=== PATIENT | male | born 1945 | race Caucasian/White ===

== ENCOUNTER 2018-05-08 22:18 | Observation (INO) | payer MEDICARE, BC ==
[~2018-05-08] VITALS: Ht 180.3 cm; Wt 87.3 kg
[~2018-05-08 22:18] MED LIST: AMBIEN5 MG PO; ASPIRIN EC81 M1 PO; ELIQUIS2.5 MG PO; HYDROCODONE-APA1 TAB PO; MICARDIS80 MG PO; NIASPAN500 MG PO; NORVASC10 MG PO; PLAVIX75 MG PO; PRAVACHOL80 MG PO; PREVACID15 MG PO; PREVACID30 MG PO; SONATA10 MG PO; VITAMIN D31000 UNIT PO
[2018-05-08] MEDS ORDERED: ZYLOPRIM100 MG PO (22:25)
[2018-05-08] MEDS ORDERED: DIOVAN160 MG PO (22:25)
[2018-05-08] MEDS ORDERED: GABAPENTIN100 MG PO (22:25)
[2018-05-08 22:38] LABS: BASOPHILS 0.4 % (0-2); EOSINOPHILS 5.8 % (0-7); HEMOGLOBIN 12.2 g/dL (13.5-17.5); IMMATURE GRANULOCYTES 0.1 % (0-5); LYMPHOCYTES 24.2 % (15-50); MCH 31.8 pg (26.0-34.0); MCV 96.4 fL (80.0-100.0); MEAN PLATELET VOLUME 9.3 fL (7.4-10.4); MONOCYTES 6.6 % (2-11); NEUTROPHILS 62.9 % (40-80); RBC 3.84 10x6/uL (4.20-6.10); RDW 13.7 % (11.5-14.5)
[2018-05-08 22:45] LABS: PLATELET COUNT 247 10x3/uL (130-400)
[2018-05-08 22:47] LABS: APTT 24.9 SECONDS (22.8-39.4); INR 0.91 (0.85-1.17); PROTIME 11.8 SECONDS (11.6-15.0)
[2018-05-08 22:55] LABS: ALBUMIN 4.1 g/dL (3.4-5.0); ALKALINE PHOSPHATASE 94 U/L (46-116); ALT (SGPT) 25 U/L (10-68); BILIRUBIN - TOTAL 0.22 mg/dL (0.2-1.3); CALC OSMOLALITY 277 mosm/kg (275-300); CALCIUM 8.9 mg/dL (8.5-10.1); CARBON DIOXIDE 24.8 mmol/L (21.0-32.0); CHLORIDE - SERUM 105 mmol/L (98-107); CREATININE - SERUM 2.2 mg/dL (0.6-1.3); GLUCOSE 103 mg/dL (74-106); POTASSIUM - SERUM 5.1 mmol/L (3.5-5.1); PROTEIN - SERUM 7.9 g/dL (6.4-8.2); SODIUM 137 mmol/L (136-145); UREA NITROGEN 25 mg/dL (7-18); eGFR NON AFRICAN AMERICAN 31 mL/min (90-120)
[2018-05-08 23:07] LABS: CKMB 1.3 U/L (0.0-3.6); CREATINE KINASE 150 UL (21-232); PRO BNP 122 pg/mL (0-125); TROPONIN-I < 0.017 ng/mL (0.000-0.060)
[2018-05-09 00:58] VITALS: BP 108/61; BMI 26.8
[2018-05-09 04:00] VITALS: BP 98/55
[2018-05-09 07:59] VITALS: BP 136/70
[2018-05-09 08:11] VITALS: Ht 180.3 cm; Wt 87.3 kg
[2018-05-09 11:06] VITALS: BP 144/73
[2018-05-09 15:06] VITALS: BP 135/76
[2018-06-23] MEDS ORDERED: CO Q-10100 MG PO (08:39)
== END 2018-05-09 16:47 | disposition home or self-care (01) ==
LOC: D.ER 22:18 → D.EDHOLD 23:13 → OBSVTIME 23:13 → D.M2 23:36
PROVIDERS: Family Medicine
DX: R07.9 Chest pain, unspecified (principal); I10 Essential (primary) hypertension; N28.9 Disorder of kidney and ureter, unspecified; K21.9 Gastro-esophageal reflux disease without esophagitis; G62.9 Polyneuropathy, unspecified; Z86.73 Personal history of transient ischemic attack (TIA), and cerebral infarction without residual deficits; Z87.891 Personal history of nicotine dependence

== ENCOUNTER 2018-06-02 09:50 | Outpatient (CLI) | payer MEDICARE, BC ==
[~2018-06-02] VITALS: Ht 180.3 cm; Wt 90.9 kg
--- NOTE | ~2018-06-02 | HEMODYNAMI ---
PATIENT:SUSANNA JOHNSON MEDICAL RECORD: [id number] : 41 LOCATION:[facility] ADMISSION DATE: 06/02/18 Generatedon:06/02/201814:16 Patient name: SUSANNA JOHNSON Patient #: [id number] SSN: : 1945 Date of study: 06/02/2018 Page: Of Hemodynamic Procedure Report Patient Data Patient Demographics Procedure consent was obtained First Name: SUSANNA Gender: Male Last Name: ALEX : 1945 Patient #: [id number] Age: 72 year(s) Race: Unknown Additional ID: [id number] Contact details Address: [facility] [address] State: [place] City: [facility] Zip code: [address] Past Medical History Allergies Allergen Reaction Date Comments Reported Other allergy 06/02/2018 sulfa Admission Admission Data Admission Date: 06/02/2018 Admission Time: 9:50 Admit Source: Other Lab Results Lab Result Date: 06/02/2018 Lab Result Time: 11:02 Biochemistry Name Units Result Min Max BUN mg/dl 28 --(----)-* 7 18 Creatinine mg/dl 2 --(----)-* 0.6 1.3 CBC Name Units Result Min Max Hematocrit % 33.3 *-(----)-- 42 54 Hemoglobin g/dl 11 *-(----)-- 13.5 17.5 Procedure Procedure Types Cath Procedure Diagnostic Procedure LHC LHC w/Coronaries Sedation Charges Moderate Sedation up to 15 minutes Procedure Description Procedure Date Procedure Date: 06/02/2018 Procedure Start Time: 13:58 Procedure End Time: 14:15 Procedure Staff Name Function Joe Kim MD Performing Physician Cecilio Jensen RT Monitor Konstantin Crockett RN Nurse Procedure Data Cath Procedure Fluoroscopy Diagnostic fluoroscopy Total fluoroscopy Time: 2.3 time: 2.3 min min Diagnostic fluoroscopy Total fluoroscopy dose: dose: 167.96 mGy 167.96 mGy Contrast Material Contrast Material Type Amount (ml) Isovue 300 65 Entry Location Entry Primary Successful Side Size Upsize Upsize Entry Closure Dunn ccessful Closure Location (Fr) 1 (Fr) 2 (Fr) Remarks Device Remarks Radial Right 6 Fr Mechanical artery Short Compression Estimated blood loss: 5 ml Diagnostic catheters Device Type Used For End Catheter Placement DIAGNOSTIC Antwon 110cm Procedure 5Fr catheter ([id number]) Procedure Complications No complications Procedure Medications Medication Administration Route Dosage 0.9% NaCl I.V. 100 ml/hr Oxygen etCO2 Nasal cannula 2 l/min Heparin Flush Bag added to field 2 bags (1000units/500ml NS) Lidocaine 2% added to field 20 Radial Cocktail added to field 1 syringe (Verapomil 2mg/Nitro 400mcg/Heparin 1500units) Versed I.V. 1 mg Fentanyl I.V. 50 mcg Versed I.V. 1 mg Fentanyl I.V. 50 mcg Radial Cocktail I.A. 1 syringe (Verapomil 2mg/Nitro 400mcg/Heparin 1500units) Hemodynamics Rest HGB: 11 (g/dl) Heart Rate: 66 (bpm) Pressure Samples Time Site Value (mmHg) Purpose Heart Use Rate(bpm) 14:02 LV 109/8,16 Snapshot 74 14:03 AO 86/51(68) Pullback 45 14:03 LV 111/-9,13 Pullback 45 Gradients Valve Time Site 1 Site 2 Mean SEP/DFP Peak To Heart Use (mmHg) (sec/min) Peak Rate (mmHg) (bpm) Aortic 14:03 LV AO 17 6 25 45 111/-9,13 86/51(68) Calculations Valve P-P Mean Valve Index Valve Source Name Gradient Area Flow (cm2) Aortic 25 17 25 17 Snapshots Pre Cath Intra NCS Post Cath Vital Signs Time Heart Resp SPO2 etCO2 NIBP (mmHg) Rhythm Pain Sedation Rate (ipm) (%) (mmHg) Status Level (bpm) 13:42:11 63 35 96 0 121/71(104) NSR 0 (11) 10(A) , No pain 13:46:25 51 19 95 25.5 134/81(101) NSR 0 (11) 10(A) , No pain 13:50:41 58 14 93 0 124/75(95) NSR 0 (11) 10(A) , No pain 13:54:55 70 19 93 44.2 120/74(98) NSR 0 (11) 10(A) , No pain 13:59:11 67 13 95 37.5 125/71(105) NSR 0 (11) 10(A) , No pain 14:03:31 73 18 93 36 101/53(73) NSR 0 (11) 10(A) , No pain 14:07:41 72 19 92 38.9 115/66(85) NSR 0 (11) 10(A) , No pain 14:11:55 70 14 96 23.9 113/63(88) NSR 0 (11) 10(A) , No pain Medications Time Medication Route Dose Verified Delivered Reason Notes Effectiveness by by 13:39:28 0.9% NaCl I.V. 100 Konstantin Konstantin Per ml/hr Bon Crockett physician RN RN 13:40:16 Oxygen etCO2 2 l/min Konstantin Konstantin Per Nasal Bon Crockett physician cannula RN RN 13:40:29 Heparin Flush added 2 bags Konstantin Konstantin used for Bag to Bon Crockett procedure (1000units/500ml RN RN NS) 13:40:41 Lidocaine 2% added 20ml Konstantin Konstantin for local to vial Lorigan Lorigan anesthetic RN RN 13:40:54 Radial Cocktail added 1 Konstantin Konstantin used for (Verapomil to syringe Bon Crockett procedure 2mg/Nitro field BENJAMIN RN 400mcg/Heparin 1500units) 13:52:17 Versed I.V. 1 mg Konstantin Konstantin for sedation Bon Crockett RN RN 13:52:25 Fentanyl I.V. 50 mcg Konstantin Konstantin for sedation Bon Crockett RN RN 13:58:54 Versed I.V. 1 mg Konstantin Konstantin for sedation Bon Crockett RN RN 13:59:01 Fentanyl I.V. 50 mcg Konstantin Konstantin for sedation Bon Crockett RN RN 14:00:53 Radial Cocktail I.A. 1 Konstantin Joe for (Verapomil syringe Bon pérez 2mg/Nitro RN 400mcg/Heparin 1500units) Procedure Log Time Note 13:17:40 Informed consent obtained and on chart 13:17:44 Admit Source: Other 13:18:27 Johan Stahl RT(R) Scrub 13:18:29 Diagnostic Cath status Elective 13:18:46 Time tracking: Regular hours (M-F 7:00 - 5:00) 13:18:49 Plan of Care:Hemodynamics will remain stable., Cardiac rhythm will remain stable., Comfort level will be maintained., Respiratory function will remain adequate., Patient/ family verbilizes understanding of procedure., Procedure tolerated without complication., Recovers from procedure without complications.. 13:24:39 H&P Date Dictated: 05/20/2018 Within 30 days and on chart., H&P Addendum completed by physician on day of procedure. (MUST COMPLETE FOR ALL OUTPATIENTS). 13:26:16 Konstantin Crockett RN sent for patient. Start room use. 13:31:53 Patient received from Pre/Post Procedure Room to CCL 3 Alert and oriented. Tansferred to table in Supine position. 13:31:54 Warm blankets applied, and jeanna hugger turned on for patient comfort. 13:31:54 Correct patient and procedure confirmed by team. 13:31:55 ECG and BP/O2 sat monitors applied to patient. 13:31:55 Pre-procedure instructions explained to patient. 13:31:56 Pre-op teaching completed and patient verbalized understanding. 13:31:57 Family in waiting room. 13:31:58 Patient NPO since Midnight. 13:39:28 0.9% NaCl 100 ml/hr I.V. was administered by Konstantin Crockett RN; Per physician; 13:40:16 Oxygen 2 l/min etCO2 Nasal cannula was administered by Konstantin Crockett RN; Per physician; 13:40:29 Heparin Flush Bag (1000units/500ml NS) 2 bags added to field was administered by Konstantin Crockett RN; used for procedure; 13:40:41 Lidocaine 2% 20ml vial added to field was administered by Konstantin Crockett RN; for local anesthetic; 13:40:54 Radial Cocktail (Verapomil 2mg/Nitro 400mcg/Heparin 1500units) 1 syringe added to field was administered by Konstantin Crockett RN; used for procedure; 13:41:01 Vital chart was started 13:49:17 Baseline sample Acquired. 13:49:22 Rhythm: sinus rhythm 13:49:23 Full Disclosure recording started 13:49:35 Patient allergic to Other allergysulfa 13:49:37 Is the patient allergic to Iodine/contrast media? No. 13:49:38 Is patient on blood thinner?Yes 13:49:41 ACC The patient was administered the following blood thiners within the last 24 hours: ACCPlavix 13:49:42 Patient diabetic? No. 13:49:47 Previous problem with sedation/anesthesia? No ? 13:49:50 Snore? Yes 13:49:51 Sleep apnea? No 13:49:52 Deviated septum? No 13:49:52 Opens mouth fully? Yes 13:49:53 Sticks out tongue? Yes 13:49:55 Airway obstruction? No ? 13:49:58 Dentures? Yes in tight 13:50:02 Modified John's test Ulnar < 7 seconds 13:50:03 Patient pain scale 0/10 ?. 13:50:29 IV patent on arrival in left forearm with 0.9% NaCl at [facility]. 13:50:55 Lab Result : BUN 28 mg/dl 13:50:55 Lab Result : Hemoglobin 11 g/dl 13:50:55 Lab Result : Creatinine 2 mg/dl 13:50:55 Lab Result : Hematocrit 33.3 % 13:50:56 Lab results completed and on chart. 13:50:59 Right Radial & Right Groin area was prepped with chlora-prep and draped in sterile fashion 13:51:00 Alarms reviewed by R. N. 13:51:00 Sharps counted by scrub and verified by R.N. 13:51:04 Use device set Radial Dx or PCI 13:51:05 ACIST Syringe (61509) opened to sterile field. 13:51:07 Medline Cath Pack ([id number]) opened to sterile field. 13:51:07 Bag Decanter (2002) opened to sterile field. 13:51:08 ACIST Hand Control (41929) opened to sterile field. 13:51:08 ACIST Manifold (60350) opened to sterile field. 13:51:09 Tegaderm 4 x 4 (1626W) opened to sterile field. 13:51:10 MBrace Wrist Support ([id number]) opened to sterile field. 13:51:12 DIAGNOSTIC WIRE .035 260cm J wire (959523) opened to sterile field. 13:51:12 NEEDLE Cook 21G 4cm Radial (S36549) opened to sterile field. 13:51:15 SHEATH 6Fr Prelude Radial ([id number]) opened to sterile field. 13:51:21 Physician arrived 13:: --------ALL STOP TIME OUT------ 13:51:22 Final Timeout: patient, procedure, and site verified with staff and physician. All members of the team are in agreement. 13:51:23 Right Radial & Right Groin site verified by team. 13:51:26 Physical assessment completed. ASA score P 2 - A patient with mild systemic disease as per Joe Kim MD. 13:51:28 Sedation plan: IV Moderate Sedation Medication:Versed, Fentanyl 13:52:17 Versed 1 mg I.V. was administered by Konstantin Crockett RN; for sedation; 13:52:25 Fentanyl 50 mcg I.V. was administered by Konstantin Crockett RN; for sedation; 13:54:16 Zero performed for pressure channel P1 13:54:19 Zero performed for pressure channel P1 13:54:27 Zero performed for pressure channel P1 13:58:25 Procedure started. 13:58:33 Local anesthetic to right radial artery with Lidocaine 2% by Joe Kim MD.INITIAL ACCESS ONLY 13:58:54 Versed 1 mg I.V. was administered by Konstantin Crockett RN; for sedation; 13:59:01 Fentanyl 50 mcg I.V. was administered by Konstantin Crockett RN; for sedation; 14:00:05 A 6 Fr Short sheath was inserted into the Right Radial artery 14:00:38 A DIAGNOSTIC Antwon 110cm 5Fr catheter ([id number]) was advanced over the wire and used for Procedure. 14:00:53 Radial Cocktail (Verapomil 2mg/Nitro 400mcg/Heparin 1500units) 1 syringe I.A. was administered by Joe Kim MD; for vasodilation; 14:02:24 LV hemodynamics recorded. 14:02:51 LV gram done using ALEJANDRE 14:02:57 Injector settings: Ml/sec: 5, Volume: 15, 14:03:21 EF : 60 % 14:03:58 LCA angiography performed. 14:06:15 RCA angiography performed. 14:08:56 Catheter removed. 14:09:12 TR BAND Standard ([id number]) opened to sterile field. 14:10:25 Sheath removed intact; hemostasis achieved with Mechanical Compression to the Right Radial artery. 14:10:26 Procedure ended.(Physican Out) 14:11: Fluoroscopy time 02.30 minutes. 14::34 Fluoroscopy dose: 167.96 mGy 14:11:34 Flurop Dose total: 167.96 14:11:55 Contrast amount:Isovue 300 65ml. 14:11:57 Sharps counted by scrub and verified by R.N. 14:12:02 TR band inflated with 12cc of air. 14:12:03 Insertion/operative site no bleeding no hematoma. 14:12:11 Post right radial artery:stable, soft, clean and dry 14:12:31 Post Procedure Pulses reassessed and unchanged 14:12:35 Post-procedure physical assessment completed. ASA score P 2 - A patient with mild systemic disease as per Joe Kim MD. 14:12:47 Post procedure rhythm: unchanged. 14:12:51 Estimated blood loss: 5 ml 14:12:53 Post procedure instruction explained to patient.Patient verbalizes understanding. 14:12:54 Patient needs reinforcement of post procedure teaching. 14:15:00 Procedure type changed to Cath procedure, Diagnostic procedure, LHC, LHC w/Coronaries, Sedation Charges, Moderate Sedation up to 15 minutes 14:15:17 Procedure and supply charges have been captured, reviewed, submitted and are correct. 14:15:20 Procedure Complication : No complications 14:15:23 Vital chart was stopped 14:15:24 See physician's report for complete and final results. 14:15:25 Report given to Pre/Post Procedure Room. 14:15:27 Patient transfered to Pre/Post Procedure Room with Stretcher. 14:15:29 Procedure ended. 14:15:29 Full Disclosure recording stopped 14:15:34 End room use (Document Last) Device Usage Item Name Manufacture Quantity Catalog Number Hospital Part Current M inimal Lot# / Charge Number Stock Stock Serial# Code ACIST Syringe Acist 1 94020 578484 [id number] 535313 2 0 (32896) [employer]! [employer] Medline Cath Cardinal 1 [id number] 780227 65719 002853 5 Magic Le[employer] Health ([id number]) Bag Decanter Microtek 1 281242 99666 591457 5 () Medical Inc. ACIST Hand Acist 1 42100 195601 249166 192832 5 Control (87104) Medical Systems Inc ACIST Manifold Acist 1 22614 003143 630624 907180 5 (18091) Medical Systems Inc Tegaderm 4 x 4 3M 1 1626W 227808 927242 848411 5 (1626W) MBrace Wrist Advanced 1 140-0250-00 563550 60122 602792 5 Support Vascular ([id number]) Dynamics DIAGNOSTIC WIRE St Leonel 1 104183 187961 567816 287811 3 0 .035 260cm J wire (204457) NEEDLE Cook 21G Cook Medical 1 T08826 670592 527825 682903 5 4cm Radial (W80928) SHEATH 6Fr Merit 1 [id number] 566937 150564 862808 5 Prelude Radial Medical ([id number]) DIAGNOSTIC Terumo 1 49-3384 598791 417334 337568 5 Antwon 110cm 5Fr catheter (432449) TR BAND Terumo 1 [id number] 820450 509258 850749 4 0 Standard (LVS12BVD) Signature Audit Ruthven Stage Time Signature Unsigned Intra-Procedure 06/02/2018 Cecilio Jensen 2:15:59 PM RT(R) Signatures Monitor : Cecilio Jensen RT Signature : Date : Time : [place] [place] [address]
[~2018-06-02 09:50] MED LIST changes: +DIOVAN160 MG PO; +GABAPENTIN100 MG PO; +ZYLOPRIM100 MG PO
[2018-06-02] MEDS ORDERED: AVAPRO150 MG PO (10:31)
[2018-06-02 10:52] VITALS: BP 132/69; Ht 180.3 cm; Wt 90.9 kg
[2018-06-02 11:07] LABS: BASOPHILS 0.4 % (0-2); EOSINOPHILS 6.6 % (0-7); HEMATOCRIT 33.3 % (42.0-54.0); LYMPHOCYTES 20.9 % (15-50); MCH 31.5 pg (26.0-34.0); MCV 95.4 fL (80.0-100.0); MEAN PLATELET VOLUME 9.5 fL (7.4-10.4); MONOCYTES 6.4 % (2-11); NEUTROPHILS 65.7 % (40-80); PLATELET COUNT 229 10x3/uL (130-400); RBC 3.49 10x6/uL (4.20-6.10); RDW 13.3 % (11.5-14.5); WBC 5.5 10x3/uL (4.8-10.8)
[2018-06-02 11:42] LABS: ANION GAP 15.2 mmol/L (8-16); CALCIUM 8.8 mg/dL (8.5-10.1); CARBON DIOXIDE 22.5 mmol/L (21.0-32.0); POTASSIUM - SERUM 5.7 mmol/L (3.5-5.1)
[2018-06-23] MEDS ORDERED: CO Q-10100 MG PO (08:39)
== END 2018-06-02 16:46 | disposition home or self-care (01) ==
LOC: D.CATH 09:50
PROVIDERS: Internal Medicine Cardiovascular Disease
DX: I25.119 Atherosclerotic heart disease of native coronary artery with unspecified angina pectoris (principal); Z01.812 Encounter for preprocedural laboratory examination

== ENCOUNTER → 2018-06-16 15:14 | Outpatient (CLI) | payer MEDICARE, BC ==
[2018-06-02 10:52] VITALS: BMI 27.9
[~2018-06-16 15:14] MED LIST changes: +AVAPRO150 MG PO; +CO Q-10100 MG PO; +CORDARONE200 MG PO; +HEMOCYTE PLUS C1 CAP PO; +HYDROCODON-ACE1 EAC7 PO
[2018-06-18 08:22] LABS: HEP B CORE AB TOTAL Negative (Negative); HEPATITIS C ANTIBODY 0.1 (0.0-0.9)
== END | disposition home or self-care (01) ==
LOC: D.LAB 15:00 → D.US 15:30
PROVIDERS: Internal Medicine Cardiovascular Disease
DX: Z01.812 Encounter for preprocedural laboratory examination (principal); R09.89 Other specified symptoms and signs involving the circulatory and respiratory systems

== ENCOUNTER 2018-06-18 10:39 | Outpatient (CLI) | payer MEDICARE, BC ==
[~2018-06-18] VITALS: Ht 180.3 cm; Wt 90.9 kg
[~2018-06-18 10:39] MED LIST changes: -CO Q-10100 MG PO; -CORDARONE200 MG PO; -HEMOCYTE PLUS C1 CAP PO; -HYDROCODON-ACE1 EAC7 PO
[2018-06-18 12:44] VITALS: Ht 180.3 cm; Wt 90.9 kg
[2018-06-23] MEDS ORDERED: CO Q-10100 MG PO (08:39)
== END 2018-06-18 20:10 | disposition home or self-care (01) ==
LOC: D.OPS 10:39 → D.CT 15:00 → D.OPS 20:10
DX: R94.39 Abnormal result of other cardiovascular function study (principal); Z01.812 Encounter for preprocedural laboratory examination; Z01.810 Encounter for preprocedural cardiovascular examination

== ENCOUNTER 2018-06-24 05:00 | Inpatient (IN) | payer MEDICARE, BC ==
[2018-06-23 10:02] LABS: BASOPHILS 0.9 % (0-2); HEMATOCRIT 34.7 % (42.0-54.0); HEMOGLOBIN 11.8 g/dL (13.5-17.5); IMMATURE GRANULOCYTES 0.2 % (0-5); LYMPHOCYTES 22.2 % (15-50); MEAN PLATELET VOLUME 9.4 fL (7.4-10.4); MONOCYTES 6.7 % (2-11); PLATELET COUNT 242 10x3/uL (130-400); RBC 3.69 10x6/uL (4.20-6.10); RDW 13.1 % (11.5-14.5); WBC 5.5 10x3/uL (4.8-10.8)
[2018-06-23 10:26] LABS: ALBUMIN 3.9 g/dL (3.4-5.0); ANION GAP 11.4 mmol/L (8-16); BILIRUBIN - TOTAL 0.21 mg/dL (0.2-1.3); CALCIUM 8.6 mg/dL (8.5-10.1); CARBON DIOXIDE 24.5 mmol/L (21.0-32.0); CREATININE - SERUM 2.3 mg/dL (0.6-1.3); PHOSPHOROUS 3.6 mg/dL (2.5-4.9); POTASSIUM - SERUM 4.9 mmol/L (3.5-5.1); PROTEIN - SERUM 7.3 g/dL (6.4-8.2); T4 THYROXIN - FREE 0.83 ng/dL (0.76-1.46); THYROID STIMULATING HORMONE 2.07 uIU/mL (0.36-3.74); URIC ACID 4.8 mg/dL (2.6-7.2)
[2018-06-23 10:45] LABS: APTT 27.8 SECONDS (22.8-39.4); INR 0.93 (0.85-1.17)
[2018-06-23 11:12] LABS: APPEARANCE CLEAR (CLEAR); BILIRUBIN NEGATIVE (NEGATIVE); COLOR YELLOW (YELLOW); GLUCOSE NEGATIVE (NEGATIVE); KETONE NEGATIVE (NEGATIVE); NITRITE NEGATIVE (NEGATIVE); PROTEIN NEGATIVE (NEGATIVE); SPECIFIC GRAVITY 1.005 (1.005-1.020); UROBILINOGEN NORMAL (NORMAL)
[2018-06-24] VITALS (40 sets, daily range): BP systolic 91–135; BP diastolic 41–84; BMI 26.8; BMI 29.2
[~2018-06-24] VITALS: Ht 180.3 cm; Wt 54.8 kg
--- NOTE | ~2018-06-24 | OP ---
PATIENT NAME: SUSANNA JOHNSON MEDICAL RECORD: [id number] :41 LOCATION:D.I D.CV05 ADMISSION DATE:06/24/18 SURGEON: CHRISTIANO BOYCE MD DATE OF OPERATION: 06/24/2018 SURGEON: Christiano Boyce MD ANESTHESIA: General endotracheal, Dr. Cavazos. CONGRESSIONAL DISTRICT AIDE: Dr. Tucker. OPERATION PERFORMED: Coronary artery bypass: 1. Left internal thoracic to left anterior descending. 2. Reverse saphenous vein graft to the first diagonal coronary artery. 3. Reverse saphenous vein graft to the obtuse marginal coronary artery. 4. Reverse saphenous vein graft to the distal right coronary artery. PREOPERATIVE DIAGNOSIS: Atherosclerosis of the coronary arteries with angina. POSTOPERATIVE DIAGNOSIS: Atherosclerosis of the coronary arteries with angina. INDICATION FOR OPERATION: Angina pectoris. FINDINGS AT OPERATION: The left internal thoracic and reverse saphenous vein graft from right thigh were excellent conduits. The target vessels were of good caliber and quality as well. ESTIMATED BLOOD LOSS: Cell Saver was used. DESCRIPTION OF PROCEDURE: After informed consent, adequate preoperative medication evaluation, the patient was brought to the operating room, placed on the table in the supine position. After induction of general endotracheal anesthesia and application of appropriate monitoring devices, the chest, neck, abdomen, and both legs were prepped and draped in sterile field, utilizing Betadine scrub, alcohol, and Betadine solution. Betadine-impregnated drape was also used. Saphenous vein was harvested from right thigh and prepared for reverse saphenous vein grafting. Leg was closed over drains utilizing 3-0 Vicryl and skin perfecto. Median sternotomy incision was used and dissection carried down to the fascia. Hemostasis maintained with electrocautery. Sternum was divided. Innominate vein was identified and protected. Left internal thoracic was taken down and prepared for grafting. The patient was given a calculated dose of heparin, cannulated in a standard fashion utilizing 1 aortic, one two-stage cannula in the atrium and inferior vena cava. The patient was placed on cardiopulmonary bypass. The patient was cooled to 32 degrees centigrade. A cross clamp was placed just proximal to the aortic cannula and the patient was given cardioplegic solution through the aortic root. The patient was given a warm induction and cold maintenance. The patient was given cold intermittent cardioplegic solution throughout the procedure through the grafts, through the root or a combination of both. The first vessel to be grafted was the distal right coronary artery, which was grafted end-to-side utilizing running 7-0 Prolene suture. Graft was measured back to the aorta and the proximal anastomosis fashioned utilizing running 6-0 Prolene suture. Next, the obtuse marginal was grafted end-to-side utilizing a running 7-0 Prolene suture. This was measured back to the aorta superiorly and sutured end-to-side utilizing running 6-0 Prolene suture. Next, first diagonal was grafted OPERATIVE REPORT [id number] SUSANNA JOHNSON end-to-side utilizing a running 7-0 Prolene suture. This graft was brought back to the aorta and placed inferiorly to the obtuse marginal graft end-to-side utilizing a running 7-0 Prolene suture. The left internal thoracic was brought through the hole in pericardium, sutured to the left anterior descending end-to-side utilizing a running 8-0 Prolene suture. All maneuvers to remove trapped air were performed. The patient was given warm cardioplegic reperfusion and controlled reperfusion. The patient was rewarmed to 37 degrees centigrade. Two atrial and 2 ventricular pacing wires were placed on the heart brought out through the epigastric area. The patient was weaned from cardiopulmonary bypass. After being stable off bypass, he was given calculated dose of protamine to reverse the heparin. Hemostasis was achieved. A #40 right angle and #36 chest tubes were brought in through the epigastric area and placed in mediastinum. A separate left Thomas drain was placed in the left hemithorax connected to bulb suction. Chest was again irrigated. Instrument count and sponge count were correct times 2. Chest was closed in layers utilizing #7 wire on the sternum, #2 Vicryl in linea alba and pectoralis fascia, subcutaneous tissues approximated with 3-0 Vicryl and skin approximated with 3-0 subcuticular Vicryl. Sterile dressings were applied. The patient tolerated the procedure well and transferred to cardiovascular recovery in stable condition. TRANSINT:[id number] Voice Confirmation ID: [id number] DOCUMENT ID: [id number] CHRISTIANO BOYCE MD at 1233 CC: [id number] DICTATION DATE: 06/24/18 1413 THERAPEUTIC ACTIVITIES SERVICES WORKER: 06/24/18 1424 ADM IN [place] [id number] [place] [address]
--- NOTE | ~2018-06-24 | TEE ---
PATIENT:SUSANNA JOHNSON MEDICAL RECORD: [id number] LOCATION:[place] [address] AGE OF PATIENT: 72 ADMISSION DATE: 06/24/18 SEX: M REFERRING PHYSICIAN: INTERPRETING PHYSICIAN: NEHAL SOLORIO MD TRANSESOPHAGEAL ECHOCARDIOGRAM Date: 06/24/18 LINSEY CHARGE Y INDICATIONS: CABG PREMEDICATIONS: PATIENT'S RESPONSE PROCEDURE DOPPLER MEASUREMENTS: LVIT LA PA RA LVOT RVOT Asc. Ao AV Gradient Peak AV Mean AV Area MV Gradient Peak MV Mean MV Area INTERPRETATION: LVD: 4.3 LVS: 3.0 Doppler: 2-D: COLOR FLOW DOPPLER NORMAL SALINE STUDY: MISCELLANOUS: DIAGNOSIS: PLAN: Green Chain Off Bearer:Landon Kim Inspector Heating And Refrigeration: Marina NEAL COMMENTS: DATE OF SERVICE: 06/24/2018 PROCEDURE: Transesophageal echo evaluation of valvular structures during bypass surgery. FINDINGS: 1. Left ventricular chamber size is within normal limits. Left ventricular systolic function is normal. Overall ejection fraction estimated at 55% to 60%. 2. Left atrium, right atrium, and right ventricle chamber sizes are within TRANSESOPHAGEAL ECHOCARDIOGRAM REPORT [id number] SUSANNA JOHNSON normal limits. 3. Valvular structures have normal structure and motion. 4. Doppler interrogation only reveals trace to mild mitral regurgitation, no other valvular insufficiency or stenosis. 5. No evidence of pericardial effusion or left ventricular thrombus. TRANSINT:[id number] Voice Confirmation ID: [id number] DOCUMENT ID: [id number] at 1728 CC: [id number] DICTATION DATE: 06/24/18 1014 PRACTICAL NURSE: 06/24/18 1116 ADM IN [place] [id number] [place] [address]
--- NOTE | ~2018-06-24 | EC ---
PATIENT:SUSANNA JOHNSON DATE OF SERVICE: 06/24/18 SEX: M MEDICAL RECORD: [id number] DATE OF : 41 LOCATION:[place] [address] AGE OF PATIENT: 72 ADMISSION DATE: 06/24/18 REFERRING PHYSICIAN: INTERPRETING PHYSICIAN: NEHAL LYONS MD ECHOCARDIOGRAM REPORT ECHO CHARGES 5 ECHO LIMITED Date: 06/26/18 1 DOPPLER ECHO COLOR FLOW 2 DOPPLER ECHO PULSE CLINICAL DIAGNOSIS: S/P CABG ECHOCARDIOGRAPHIC MEASUREMENTS (adult normal given) AC root (d.<3.7cm) 0 cm LV Septum d (<1.2 cm> 0 cm Valve Excursion 0 cm LV Septum (systole) 0 cm Left Atria (s.<4.0cm> 0 cm LVPW d(<1.2cm) 0 cm RV (d.<2.3cm) 0 cm LVPW (sytole) 0 cm LV diastole(<5.6CM) 0 cm MV E-F(>70mm/sec) 0 cm LV systole 0 cm LVOT Diameter 0 cm MV exc.(>10mm) 0 cm Est.ejection fraction (50-75%) % DOPPLER: LVIT 0 cm/sec A 0 cm/sec E 0 cm/sec LA 0 cm/sec RVSP 32.0 mmHg LVOT 0 cm/sec AOP1/2T 0 m/s Asc. Ao 0 cm/sec RVOT 0 cm/sec RA 0 cm/sec PA 0 cm/sec AV Gradient Peak 0 mmHg AV Mean 0 mmHg AV Area 0 cm MV Gradient Peak 0 mmHg MV Mean 0 mmHg MV Area 0 cm COMMENTS: LIMITED ECHO WITH BUBBLE STUDY Sales Vendor: 1 JIMMY LUMBERTON Product Marketing Engineer: 1 Dr. Lyons TAPE# PACS Pericardial Effusion N DATE OF SERVICE: FINDINGS: 1. Left ventricular chamber size is upper limits of normal. Left ventricular systolic function is mildly reduced. Overall ejection fraction estimated at 40%. 2. Left atrium, right atrium, and right ventricular chamber sizes are upper limits of normal. 3. Valvular structures have normal structure and motion. 4. Doppler interrogation reveals mild mitral regurgitation, mild tricuspid ECHOCARDIOGRAM REPORT [id number] SUSANNA JOHNSON regurgitation. No other valvular insufficiency or stenosis. Pulmonary systolic pressure is estimated at 32 mmHg. 5. No evidence of pericardial effusion or left ventricular thrombus. 6. Bubble study was done. There is no evidence of alms-pa-jmfhx or twhkn-kp-dlha shunt. TRANSINT:[id number] Voice Confirmation ID: [id number] DOCUMENT ID: [id number] NEHAL LYONS MD at 0934 CC: [id number] DICTATION DATE: 06/27/18 0958 VETERINARY ASSISTANT TECHNICIAN: 06/27/18 1118 ADM IN [place] [id number] [place] [address]
--- NOTE | ~2018-06-24 | HP ---
PATIENT: SUSANNA JOHNSON MEDICAL RECORD: [id number] ACCOUNT: [id number] LOCATION:[facility]05 : 43 ADMISSION DATE: 06/24/18 PCP: ETTA BOYCE MD HISTORY AND PHYSICAL EXAMINATION SUSANNA Wright (72yo, M) ID# [id number]. Date/Time06/16/2018 02:[id number] 1945Service Dept.NPP[facility] ClinicProviderEDLOIS BOYEC MDInsuranceMed Primary: [place] Insurance # : [id number] Employer Name : RETIRED Med Secondary: [place]LE[place]) Insurance # : [id number] Policy/Group # : [id number] PCP : IAN THOMPSON Referring Provider Name : IAN THOMPSON Employer Name : RETIRED Prescription: CMX - Member is eligible. Chief Complaint None recorded. Patient's Care Team Primary Care Provider (): IAN THOMPSON: [address] [place] [address], , Referring Provider (): IAN THOMPSON: [address] [place] [address], , [id number] ([facility]): [address] [place] [facility] [address], , Vitals BP:130/70 sitting R arm 06/16/2018 02:11 pm 120/60 sitting L arm 06/16/2018 02:11 pmHR:88R/R 06/16/2018 02:11 pmHt:5 ft 10 in 06/16/2018 02:11 pmWt:200 lbs 06/16/2018 02:09 pmBMI:28.7 06/16/2018 02:11 pmAllergies Reviewed Allergies SULFA (SULFONAMIDE ANTIBIOTICS): Other (Severe)Medications Reviewed Medications ACETYLCYSTEINE 600 MG Capsules TAKE ONE CAPSULE BY MOUTH TWICE DAILY FOR 2 DAYS05/29/18 filledsurescriptsAfluria 1183-9289 45 mcg (15 mcg x 3)/0.5 mL intramuscular suspension ADM 0.5ML UTD11/30/12 filledsurescriptsallopurinol 100 mg tablet TK 1 T PO BID06/01/18 filledCaremarkamLODIPine 10 mg tablet TK 1 T PO DAILY03/19/18 filledCaremarkamoxicillin 875 mg-potassium clavulanate 125 mg zgojzc68/19/11 filledMEDCOazithromycin 250 mg kmkhru89/30/16 filledsurescriptscefUROXime axetil 500 mg nkvent34/20/13 filledMEDCOcephALEXin 500 mg xaitpyq44/21/18 filledCaremarkchlorhexidine gluconate 0.12 % ufmuejtgt74/08/16 filledCaremarkclindamycin HCl 300 mg capsule TK 1 C PO Q 6 H.04/13/15 filledsurescriptsclopidogrel 75 mg tablet TAKE ONE TABLET BY MOUTH DAILY05/23/18 filledCaremarkcyanocobalamin (vit B-12) 1,000 mcg/mL injection solution INJECT 1 ML INTRAMUSCULAR ROUTE Q 2 WEEKS09/23/17 filledsurescriptscyclobenzaprine 10 mg tablet TK 1 T PO QHS01/22/18 filledsurescriptsdoxycycline hyclate 100 mg phoytuq08/10/15 filledCaremarkEliquis 2.5 mg tablet TK 1 T PO BID FOR 20 DAYS11/23/14 filledsurescriptsFluvirin 6290-6572 45 mcg (15 mcg x 3)/0.5 mL intramuscular suspension ADM 0.5ML UTD111/01/12 filledsurescriptsFluzone High-Dose (PF) 180 mcg/0.5 mL intramuscular syringe HISTORY AND PHYSICAL [id number] SUSANNA JOHNSON INJECT 0.5 ML INTRAMUSCULARLY DIRECTED.09/21/14 filledsurescriptsgabapentin 100 mg capsule TK 1 C PO TID PRN01/12/18 filledCaremarkHYDROcodone 10 mg-acetaminophen 325 mg tablet TK 1 OR 2 TS PO Q 4 TO 6 H PRN P012/06/14 filledCaremark hyoscyamine 0.125 mg sublingual tablet DISSOLVE 1 T PO Q 6 TO 8 H PRF ABDOMINAL CRAMPS.11/08/13 filledsurescriptsirbesartan 150 mg tablet TK 1 T PO QD05/11/18 filledsurescriptslansoprazole 30 mg capsule,delayed release TAKE ONE CAPSULE BY MOUTH DAILY09/27/14 filledsurescriptsmethylPREDNISolone 4 mg tablets in a dose pack TK UTD01/21/18 gdrdxbicufvvlbuwffpqggx42/24/12 enteredHeather Farnamomeprazole 20 mg capsule,delayed oyzhnte26/24/14 filledMEDCOondansetron HCl 4 mg /26/14 filledMEDCOpenicillin V potassium 500 mg vsjzuo02/03/13 filledMEDCOpravastatin 20 mg tablet Take 2 tablet(s) every day by oral route.10/23/12 filledMEDCOpravastatin 40 mg erttht21/26/13 filledMEDCOpravastatin 80 mg tablet TK 1 T PO D005/03/18 filledsurescriptspredniSONE 10 mg tablet TK 1 T PO TID X 3 DAYS 1 BID X 3 DAYS 1 QD X 3 DAYS THEN STOP01/12/15 filledsurescriptssertraline 25 mg cevsxa09/04/17 filledCaremarkSingulair 10 mg ogczse85/17/12 filledMEDCOsulindac 150 mg pjvvos72/03/13 filledMEDCOtelmisartan 80 mg tablet TK 1 T PO D112/24/13 filledsurescriptsvalsartan 160 mg tablet TK 1 T PO QD04/11/18 filledCaremarkVentolin HFA 90 mcg/actuation aerosol /25/12 filledMEDCOzaleplon 10 mg capsule TK ONE C PO QHS PRN111/30/13 filledsurescriptszolpidem 10 mg tablet TK 1 T PO QHS PRN05/18/18 filledsurescriptsZostavax (PF) 19,400 unit/0.65 mL subcutaneous kcuwudktrm17/04/13 filledMEDCOProblems Reviewed Problems Coronary arteriosclerosis - Onset: 06/16/2018 Disorder of shoulder Left lower quadrant pain Disorder of rotator cuff Family History Reviewed Family History Non-contributory.Social History Reviewed Social History General Occupation: retired Marital status: General stress level: Medium Smoking Status: Former smoker Alcohol intake: None Caffeine intake: Heavy (Notes: 10 cups of coffee per day) Chewing tobacco: 5+/day Is blood transfusion acceptable in an emergency?: Y jose maria shoulder pain Surgical History Reviewed Surgical History Other - shoulder repair Other - knee replacement Other - prostatectomy HISTORY AND PHYSICAL [id number] SUSANNA JOHNSON Shoulder arthroscopy with rotator cuff repair - 12/05/2011 Past Medical History Reviewed Past Medical History Cancer: Y - Prostate Coronary Artery Disease: Y High Blood Pressure: Y Documents for Discussion Discussed the following documents: CARDIAC CATHETERIZATION (SURG) - 06/02/18 Clinical Document - [email or web address] (PRIMARY) - SILVERSCRIPT - 11/29/14 Screening None recorded. HPI Coronary Artery Disease F/U Reported by patient. Severity: symptoms are worsening; interference with school; chest discomfort with household activities/yard work Associated Symptoms: chest pain with exertion; left arm pain with exertion; dyspnea with exertion Notes: "May 08 SOB/chest pressure and Left arm pain. b/p high at home. came to ER." angina with exertion ROS Patient reports exercise intolerance (chest pressure) but reports no fever, no night sweats, no significant weight gain, and no significant weight loss. He reports shortness of breath (with vigorous exercise) but reports no cough, no wheezing, and no coughing up blood. 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 He reports no muscle aches, no muscle weakness, no arthralgias/joint pain, no back pain, and no swelling in the extremities; bilateral knee replacement. He reports no abnormal mole, no jaundice, and no rashes; multiple skin cancers removed crown of his head Anterior chest midline. He reports no dry eyes, no irritation, and no vision change. He reports no difficulty hearing and no ear pain. He reports no frequent nosebleeds and no nose/sinus problems. He reports no sore throat, no bleeding gums, no snoring, no dry mouth, no mouth ulcers, no oral abnormalities, and no teeth problems. He reports no jugular vein distension and no swollen glands. H e reports no chest pain, no arm pain on exertion, no shortness of breath when walking, no shortness of breath when lying down, no palpitations, and no known heart murmur. He reports no abdominal pain, no vomiting, normal appetite, no diarrhea, not vomiting blood, no nausea, and no constipation. He reports no loss of consciousness, no weakness, no numbness, no seizures, no dizziness, and no headaches. He reports no depression, no sleep disturbances, feeling safe in relationship, and no alcohol abuse. He repo rts no fatigue. He reports no swollen glands and no bruising. He reports no runny nose, no sinus pressure, no itching, no hives, and no frequent sneezing. ROS as noted in the HPI Physical Exam Patient is a 72-year-old male. Constitutional: General Appearance well nourished and developed and healthy-appearing. Level of Distress NAD. Ambulation ambulating normally. Cardiovascular: Apical Impulse not displaced or no thrill. Heart Auscultation normal s1 and s2; no murmurs, rubs, or gallops; and RRR. Arterial Pulses no abdominal HISTORY AND PHYSICAL [id number] ALEX,LARO aorta bruits, femoral bruits, or popliteal bruits and 2+ bilateral, carotid 2+ bilateral, femoral 2+ bilateral, popliteal 2+ bilateral, and dorsalis pedis 2+ bilateral. Edema no edema or varicosities. Lungs: Repiratory E ffort no dyspnea. Percussion no hyperresonance or dullness or flatness. Auscultation no wheezing, rhonchi, or rales / crackles and breathing sounds normal, good air movement, and CTA except as noted. Abdomen: Bowl Sounds normal. Inspection and Palpation n o tenderness, guarding, masses, or rebound tenderness and soft and non-distended. Liver non-tender and no hepatomegaly. Spleen non-tender and no splenomegaly. Hernia none palpable. Musculoskeletal System: Gait And Stance normal gait and stance. Digits and Nails normal nails and no cyanosis. Joints, Bones, and Muscles limited ROM; knees bilaterally. Neurologic: Cranial Nerves grossly intact. Reflexes DTRs 2+ bilaterally throughout. Sensation grossly intact. Lymph Nodes: Lymph Nodes no cervical LAD, supraclavicular LAD, axillary LAD, or inguinal LAD. Eyes: Lids and Conjunctivae no discharge or pallor and non-injected. Pupils PERRLA. Cornea grossly intact. EOM EOMI. Lens clear. Sclerae non-icteric. Neck: Neck no masses or enlarged lymph nodes and supple, trachea midline, and carotid bruits (soft bruit left). Thyroid no enlargement or nodules and non-tender. Skin: Inspection and Palpation no rash, lesions, ulcers, jaundice, or abnormal nevi. Assessment / Plan atherosclerosis coronary artery disease with angina 1. Coronary arteriosclerosis I25.10: Atherosclerotic heart disease of [place] coronary artery without angina pectoris I25.118: Atherosclerotic heart disease of [place] coronary artery with other forms of angina pectoris Discussion Notes hold Plavix Hepatitis screen Carotid Doppler study I have discussed the patient's disease process with him and his family in detail as well as the alternative methods of treatment. We discussed coronary artery bypass including the expected benefits and risk which incl ude bleeding, infection, stroke, , and the imponderables. He understands all of the above and wishes to proceed with planned surgery tentatively scheduled for 24 June HISTORY AND PHYSICAL [id number] SUSANNA JOHNSON EDWARD MD at 1234 CC: [id number] DICTATION DATE: 06/16/18 1400 CUSTOMER CARE CONSULTANT: JUAN 06/18/18 1143 ADM IN [facility] [address] [id number]
[~2018-06-24 05:00] MED LIST changes: +CO Q-10100 MG PO
[2018-06-24 08:45] LABS: PLT FUNCT.(P2Y12) PLAVIX 316 PRU (194-418)
[2018-06-24 13:37] LABS: MCHC 34.3 g/dL (31.0-37.0); MCV 93.4 fL (80.0-100.0); MEAN PLATELET VOLUME 9.3 fL (7.4-10.4); RDW 13.1 % (11.5-14.5)
[2018-06-24 13:41] LABS: ANION GAP 16.5 mmol/L (8-16); CARBON DIOXIDE 22.6 mmol/L (21.0-32.0); CREATININE - SERUM 1.9 mg/dL (0.6-1.3); POTASSIUM - SERUM 5.1 mmol/L (3.5-5.1)
[2018-06-24 13:43] LABS: CALCIUM 6.7 mg/dL (8.5-10.1)
[2018-06-24 14:01] LABS: APTT 33.8 SECONDS (22.8-39.4); HEMATOCRIT 24.2 % (42.0-54.0); HEMOGLOBIN 8.3 g/dL (13.5-17.5); RBC 2.59 10x6/uL (4.20-6.10); WBC 11.3 10x3/uL (4.8-10.8)
[2018-06-24 14:11] LABS: INR 1.49 (0.85-1.17); PROTIME 17.5 SECONDS (11.6-15.0)
[2018-06-24 23:55] LABS: LYMPHOCYTES 7.3 % (15-50); MCH 31.3 pg (26.0-34.0); MCHC 33.7 g/dL (31.0-37.0); MCV 92.8 fL (80.0-100.0); MEAN PLATELET VOLUME 8.9 fL (7.4-10.4); NEUTROPHILS 86.5 % (40-80); PLATELET COUNT 115 10x3/uL (130-400); RBC 2.08 10x6/uL (4.20-6.10); RDW 13.2 % (11.5-14.5)
[2018-06-24 23:56] LABS: WBC 6.8 10x3/uL (4.8-10.8)
[2018-06-24 23:57] LABS: HEMATOCRIT 19.3 % (42.0-54.0); HEMOGLOBIN 6.5 g/dL (13.5-17.5)
[2018-06-25] VITALS (81 sets, daily range): BP systolic 92–140; BP diastolic 45–72; Ht 180.3 cm; Wt 54.8 kg
[2018-06-25 04:36] LABS: MCH 30.4 pg (26.0-34.0); MCHC 34.4 g/dL (31.0-37.0); MEAN PLATELET VOLUME 10.7 fL (7.4-10.4); RDW 15.2 % (11.5-14.5)
[2018-06-25 04:41] LABS: RBC 2.96 10x6/uL (4.20-6.10); WBC 9.7 10x3/uL (4.8-10.8)
[2018-06-25 04:42] LABS: HEMATOCRIT 26.2 % (42.0-54.0); MCV 88.5 fL (80.0-100.0)
[2018-06-25 05:02] LABS: ALBUMIN 3.6 g/dL (3.4-5.0); ANION GAP 14.7 mmol/L (8-16); BILIRUBIN - TOTAL 0.71 mg/dL (0.2-1.3); CALCIUM 8.2 mg/dL (8.5-10.1); CARBON DIOXIDE 26.8 mmol/L (21.0-32.0); POTASSIUM - SERUM 5.5 mmol/L (3.5-5.1); PROTEIN - SERUM 5.5 g/dL (6.4-8.2)
[2018-06-25 05:06] LABS: CREATININE - SERUM 2.5 mg/dL (0.6-1.3)
[2018-06-26] VITALS (25 sets, daily range): BP systolic 113–140; BP diastolic 48–68
[2018-06-26 05:29] LABS: BASOPHILS 0.2 % (0-2); EOSINOPHILS 0 % (0-7); HEMATOCRIT 25.2 % (42.0-54.0); HEMOGLOBIN 8.3 g/dL (13.5-17.5); IMMATURE GRANULOCYTES 0.2 % (0-5); LYMPHOCYTES 8.4 % (15-50); MCH 30.1 pg (26.0-34.0); MCHC 32.9 g/dL (31.0-37.0); MEAN PLATELET VOLUME 10.1 fL (7.4-10.4); MONOCYTES 4.8 % (2-11); NEUTROPHILS 86.4 % (40-80); RBC 2.76 10x6/uL (4.20-6.10); WBC 12.1 10x3/uL (4.8-10.8)
[2018-06-26 05:39] LABS: MCV 91.3 fL (80.0-100.0); PLATELET COUNT 87 10x3/uL (130-400)
[2018-06-26 05:40] LABS: ALBUMIN 3.2 g/dL (3.4-5.0); BILIRUBIN - TOTAL 0.39 mg/dL (0.2-1.3); CALCIUM 7.5 mg/dL (8.5-10.1); CARBON DIOXIDE 24.2 mmol/L (21.0-32.0); MAGNESIUM - SERUM 3.4 mg/dL (1.8-2.4); PHOSPHOROUS 5.6 mg/dL (2.5-4.9); POTASSIUM - SERUM 5.2 mmol/L (3.5-5.1); PROTEIN - SERUM 5.5 g/dL (6.4-8.2)
[2018-06-26 05:42] LABS: CREATININE - SERUM 3.8 mg/dL (0.6-1.3)
[2018-06-26 11:46] LABS: CREATININE - URINE 170.6 mg/dL (30-125); POTASSIUM - URINE 70.7 MMOL/L (12.0-62.0)
[2018-06-26 11:47] LABS: APPEARANCE CLEAR (CLEAR); BILIRUBIN NEGATIVE (NEGATIVE); COLOR YELLOW (YELLOW); GLUCOSE NEGATIVE (NEGATIVE); KETONE LARGE mg/dL (NEGATIVE); NITRITE NEGATIVE (NEGATIVE); PROTEIN NEGATIVE (NEGATIVE); SPECIFIC GRAVITY 1.015 (1.005-1.020); UROBILINOGEN NORMAL (NORMAL)
[2018-06-27] VITALS (27 sets, daily range): BP systolic 97–151; BP diastolic 55–73
[2018-06-27 05:28] LABS: BASOPHILS 0.2 % (0-2); EOSINOPHILS 0.4 % (0-7); HEMATOCRIT 22.6 % (42.0-54.0); IMMATURE GRANULOCYTES 0.2 % (0-5); LYMPHOCYTES 9.3 % (15-50); MCH 30.7 pg (26.0-34.0); MCHC 33.2 g/dL (31.0-37.0); MCV 92.6 fL (80.0-100.0); MEAN PLATELET VOLUME 9.6 fL (7.4-10.4); NEUTROPHILS 84.9 % (40-80); PLATELET COUNT 74 10x3/uL (130-400); RBC 2.44 10x6/uL (4.20-6.10); RDW 15.3 % (11.5-14.5)
[2018-06-27 05:32] LABS: WBC 8.2 10x3/uL (4.8-10.8)
[2018-06-27 05:33] LABS: HEMOGLOBIN 7.5 g/dL (13.5-17.5)
[2018-06-27 06:11] LABS: ALBUMIN 2.9 g/dL (3.4-5.0); ALKALINE PHOSPHATASE 44 U/L (46-116); ALT (SGPT) 22 U/L (10-68); BILIRUBIN - TOTAL 0.49 mg/dL (0.2-1.3); CALC OSMOLALITY 284 mosm/kg (275-300); CALCIUM 7.3 mg/dL (8.5-10.1); CARBON DIOXIDE 26.4 mmol/L (21.0-32.0); CHLORIDE - SERUM 101 mmol/L (98-107); CREATININE - SERUM 3.5 mg/dL (0.6-1.3); GLUCOSE 114 mg/dL (74-106); MAGNESIUM - SERUM 3.3 mg/dL (1.8-2.4); PHOSPHOROUS 4.5 mg/dL (2.5-4.9); POTASSIUM - SERUM 4.5 mmol/L (3.5-5.1); PROTEIN - SERUM 5.3 g/dL (6.4-8.2); SODIUM 135 mmol/L (136-145); UREA NITROGEN 53 mg/dL (7-18); eGFR NON AFRICAN AMERICAN 18 mL/min (90-120)
[2018-06-27 06:12] LABS: CREATINE KINASE 1468 UL (21-232)
[2018-06-27 06:42] LABS: CKMB 6.8 U/L (0.0-3.6)
[2018-06-28] VITALS (25 sets, daily range): BP systolic 107–155; BP diastolic 45–80
[2018-06-28 05:39] LABS: BASOPHILS 0.1 % (0-2); EOSINOPHILS 1.1 % (0-7); IMMATURE GRANULOCYTES 0.2 % (0-5); LYMPHOCYTES 8.1 % (15-50); MCH 30.3 pg (26.0-34.0); MCHC 33.2 g/dL (31.0-37.0); MCV 91.1 fL (80.0-100.0); MEAN PLATELET VOLUME 10.4 fL (7.4-10.4); MONOCYTES 6.2 % (2-11); NEUTROPHILS 84.3 % (40-80); PLATELET COUNT 78 10x3/uL (130-400); RDW 14.9 % (11.5-14.5); WBC 8.5 10x3/uL (4.8-10.8)
[2018-06-28 05:43] LABS: HEMATOCRIT 27.7 % (42.0-54.0); HEMOGLOBIN 9.2 g/dL (13.5-17.5); RBC 3.04 10x6/uL (4.20-6.10)
[2018-06-28 05:50] LABS: APTT 36.1 SECONDS (22.8-39.4); INR 1.19 (0.85-1.17); PROTIME 14.7 SECONDS (11.6-15.0)
[2018-06-28 05:51] LABS: D-DIMER-QUANTITATIVE 3.54 ug/mLFEU (0.20-0.54)
[2018-06-28 06:24] LABS: % SATURATION 8 % (15-55); IRON 16 ug/dl (35-150); TOTAL IRON BIND CAPACITY 178 ug/dl (260-445); UNSAT IRON BIND CAPACITY 162 ug/dl (150-375)
[2018-06-28 06:43] LABS: ALBUMIN 2.6 g/dL (3.4-5.0); ANION GAP 10.5 mmol/L (8-16); BILIRUBIN - TOTAL 0.92 mg/dL (0.2-1.3); CALCIUM 7.3 mg/dL (8.5-10.1); CARBON DIOXIDE 26.8 mmol/L (21.0-32.0); MAGNESIUM - SERUM 3.1 mg/dL (1.8-2.4); PHOSPHOROUS 4.2 mg/dL (2.5-4.9); POTASSIUM - SERUM 4.3 mmol/L (3.5-5.1); PROTEIN - SERUM 5.4 g/dL (6.4-8.2); VANCOMYCIN - TROUGH 10.8 ug/mL (10.0-20.0)
[2018-06-29] VITALS (24 sets, daily range): BP systolic 113–146; BP diastolic 64–82
[2018-06-29 06:02] LABS: BASOPHILS 0.1 % (0-2); EOSINOPHILS 0.6 % (0-7); HEMATOCRIT 29.9 % (42.0-54.0); HEMOGLOBIN 9.8 g/dL (13.5-17.5); IMMATURE GRANULOCYTES 0.4 % (0-5); LYMPHOCYTES 7.4 % (15-50); MCH 29.9 pg (26.0-34.0); MCHC 32.8 g/dL (31.0-37.0); MCV 91.2 fL (80.0-100.0); MEAN PLATELET VOLUME 10.2 fL (7.4-10.4); MONOCYTES 6.5 % (2-11); PLATELET COUNT 111 10x3/uL (130-400); RBC 3.28 10x6/uL (4.20-6.10); RDW 14.9 % (11.5-14.5); WBC 8.4 10x3/uL (4.8-10.8)
[2018-06-29 06:36] LABS: ALBUMIN 2.7 g/dL (3.4-5.0); ALKALINE PHOSPHATASE 123 U/L (46-116); BILIRUBIN - TOTAL 0.98 mg/dL (0.2-1.3); CALC OSMOLALITY 281 mosm/kg (275-300); CALCIUM 7.5 mg/dL (8.5-10.1); CARBON DIOXIDE 25.2 mmol/L (21.0-32.0); CHLORIDE - SERUM 100 mmol/L (98-107); CREATININE - SERUM 3.3 mg/dL (0.6-1.3); GLUCOSE 107 mg/dL (74-106); POTASSIUM - SERUM 4.3 mmol/L (3.5-5.1); PROTEIN - SERUM 5.9 g/dL (6.4-8.2); SODIUM 135 mmol/L (136-145); UREA NITROGEN 47 mg/dL (7-18); eGFR NON AFRICAN AMERICAN 20 mL/min (90-120)
[2018-06-29 06:37] LABS: ALT (SGPT) 74 U/L (10-68); CREATINE KINASE 913 UL (21-232)
[2018-06-29 06:38] LABS: CKMB 2.5 U/L (0.0-3.6)
[2018-06-30] VITALS (24 sets, daily range): BP systolic 93–151; BP diastolic 53–79
[2018-06-30 06:29] LABS: ANION GAP 12.1 mmol/L (8-16); CALCIUM 7.5 mg/dL (8.5-10.1); POTASSIUM - SERUM 4.1 mmol/L (3.5-5.1); VANCOMYCIN - TROUGH 22.9 ug/mL (10.0-20.0)
[2018-06-30 07:02] LABS: BASOPHILS 0.1 % (0-2); EOSINOPHILS 3.3 % (0-7); HEMATOCRIT 29.2 % (42.0-54.0); HEMOGLOBIN 9.4 g/dL (13.5-17.5); IMMATURE GRANULOCYTES 0.3 % (0-5); LYMPHOCYTES 6.4 % (15-50); MCH 29.7 pg (26.0-34.0); MCHC 32.2 g/dL (31.0-37.0); MCV 92.1 fL (80.0-100.0); MONOCYTES 9.2 % (2-11); NEUTROPHILS 80.7 % (40-80); RBC 3.17 10x6/uL (4.20-6.10); RDW 14.8 % (11.5-14.5); WBC 6.8 10x3/uL (4.8-10.8)
[2018-06-30 07:03] LABS: PLATELET COUNT 142 10x3/uL (130-400)
[2018-06-30 11:13] LABS: OSMOLALITY - URINE 532 (())
[2018-07-01] VITALS (24 sets, daily range): BP systolic 101–139; BP diastolic 54–87
[2018-07-01 06:15] LABS: BASOPHILS 0.2 % (0-2); EOSINOPHILS 3.7 % (0-7); HEMATOCRIT 29.6 % (42.0-54.0); HEMOGLOBIN 9.7 g/dL (13.5-17.5); IMMATURE GRANULOCYTES 0.5 % (0-5); LYMPHOCYTES 8.2 % (15-50); MCH 30.3 pg (26.0-34.0); MCHC 32.8 g/dL (31.0-37.0); MCV 92.5 fL (80.0-100.0); MEAN PLATELET VOLUME 10.4 fL (7.4-10.4); MONOCYTES 7.9 % (2-11); NEUTROPHILS 79.5 % (40-80); RDW 14.8 % (11.5-14.5); WBC 6.6 10x3/uL (4.8-10.8)
[2018-07-01 06:29] LABS: PLATELET COUNT 192 10x3/uL (130-400)
[2018-07-01 06:45] LABS: CALCIUM 7.6 mg/dL (8.5-10.1); CARBON DIOXIDE 26.8 mmol/L (21.0-32.0); CREATININE - SERUM 2.9 mg/dL (0.6-1.3); MAGNESIUM - SERUM 2.8 mg/dL (1.8-2.4); POTASSIUM - SERUM 3.8 mmol/L (3.5-5.1); VANCOMYCIN - TROUGH 15.4 ug/mL (10.0-20.0)
[2018-07-02] VITALS (24 sets, daily range): BP systolic 108–135; BP diastolic 32–91
[2018-07-02 06:11] LABS: BASOPHILS 0.4 % (0-2); EOSINOPHILS 5.3 % (0-7); HEMATOCRIT 30.5 % (42.0-54.0); IMMATURE GRANULOCYTES 0.4 % (0-5); LYMPHOCYTES 12.8 % (15-50); MCH 30.5 pg (26.0-34.0); MCHC 32.8 g/dL (31.0-37.0); MEAN PLATELET VOLUME 10.3 fL (7.4-10.4); MONOCYTES 7.5 % (2-11); NEUTROPHILS 73.6 % (40-80); RBC 3.28 10x6/uL (4.20-6.10); WBC 7.9 10x3/uL (4.8-10.8)
[2018-07-02 06:29] LABS: PLATELET COUNT 255 10x3/uL (130-400)
[2018-07-02 06:44] LABS: ANION GAP 12.7 mmol/L (8-16); CALCIUM 7.8 mg/dL (8.5-10.1); CARBON DIOXIDE 24.4 mmol/L (21.0-32.0); MAGNESIUM - SERUM 2.7 mg/dL (1.8-2.4); POTASSIUM - SERUM 4.1 mmol/L (3.5-5.1); VANCOMYCIN - TROUGH 18.6 ug/mL (10.0-20.0)
[2018-07-03] VITALS (24 sets, daily range): BP systolic 101–139; BP diastolic 53–76
[2018-07-03 06:23] LABS: ANION GAP 13.9 mmol/L (8-16); CALCIUM 8.2 mg/dL (8.5-10.1); CARBON DIOXIDE 23.5 mmol/L (21.0-32.0); CREATININE - SERUM 3.1 mg/dL (0.6-1.3); MAGNESIUM - SERUM 2.8 mg/dL (1.8-2.4); POTASSIUM - SERUM 4.4 mmol/L (3.5-5.1); VANCOMYCIN - RANDOM 14.8 ug/mL (10.0-20.0)
[2018-07-03 07:07] LABS: HEMATOCRIT 28.5 % (42.0-54.0); HEMOGLOBIN 9.6 g/dL (13.5-17.5); LYMPHOCYTES 9.5 % (15-50); MCH 31.3 pg (26.0-34.0); MCHC 33.7 g/dL (31.0-37.0); MCV 92.8 fL (80.0-100.0); MEAN PLATELET VOLUME 10.4 fL (7.4-10.4); NEUTROPHILS 86.1 % (40-80); PLATELET COUNT 252 10x3/uL (130-400); RBC 3.07 10x6/uL (4.20-6.10); RDW 14.7 % (11.5-14.5); WBC 8.4 10x3/uL (4.8-10.8)
[2018-07-04] VITALS (24 sets, daily range): BP systolic 115–153; BP diastolic 54–70
[2018-07-04 06:12] LABS: BASOPHILS 0.3 % (0-2); EOSINOPHILS 2.2 % (0-7); HEMOGLOBIN 8.8 g/dL (13.5-17.5); IMMATURE GRANULOCYTES 0.5 % (0-5); LYMPHOCYTES 11.1 % (15-50); MCH 29.6 pg (26.0-34.0); MCHC 31.4 g/dL (31.0-37.0); MCV 94.3 fL (80.0-100.0); MEAN PLATELET VOLUME 10.2 fL (7.4-10.4); MONOCYTES 5.8 % (2-11); NEUTROPHILS 80.1 % (40-80); PLATELET COUNT 283 10x3/uL (130-400); RBC 2.97 10x6/uL (4.20-6.10); WBC 8.8 10x3/uL (4.8-10.8)
[2018-07-04 06:36] LABS: ANION GAP 12.5 mmol/L (8-16); CALCIUM 7.8 mg/dL (8.5-10.1); CARBON DIOXIDE 23.8 mmol/L (21.0-32.0); CREATININE - SERUM 3.1 mg/dL (0.6-1.3); MAGNESIUM - SERUM 2.7 mg/dL (1.8-2.4); POTASSIUM - SERUM 4.3 mmol/L (3.5-5.1)
[2018-07-05] VITALS (24 sets, daily range): BP systolic 113–143; BP diastolic 50–72
[2018-07-05 07:04] LABS: ALBUMIN 2.2 g/dL (3.4-5.0); ANION GAP 13.1 mmol/L (8-16); BILIRUBIN - TOTAL 0.32 mg/dL (0.2-1.3); CALCIUM 7.8 mg/dL (8.5-10.1); CARBON DIOXIDE 23.4 mmol/L (21.0-32.0); CREATININE - SERUM 3.2 mg/dL (0.6-1.3); POTASSIUM - SERUM 4.5 mmol/L (3.5-5.1); PROTEIN - SERUM 6.1 g/dL (6.4-8.2)
[2018-07-06] VITALS (12 sets, daily range): BP systolic 108–145; BP diastolic 48–71
[2018-07-06 06:45] LABS: ALBUMIN 2.2 g/dL (3.4-5.0); ANION GAP 11.4 mmol/L (8-16); BILIRUBIN - TOTAL 0.31 mg/dL (0.2-1.3); CALCIUM 7.6 mg/dL (8.5-10.1); CARBON DIOXIDE 24.8 mmol/L (21.0-32.0); POTASSIUM - SERUM 4.2 mmol/L (3.5-5.1); PROTEIN - SERUM 6.1 g/dL (6.4-8.2)
[2018-07-06] MEDS ORDERED: HEMOCYTE PLUS C1 CAP PO (11:00)
[2018-07-06] MEDS ORDERED: CORDARONE200 MG PO (11:01)
[2018-07-06] MEDS ORDERED: HYDROCODON-ACE1 EAC7 PO (11:11)
== END 2018-07-06 14:52 | disposition home or self-care (01) | DRG 235 ==
LOC: D.SDCHOLD 05:00 → D.CVICU 05:00 → D.SDCHOLD 07:30 → D.CVICU 11:35
PROVIDERS: Internal Medicine Cardiovascular Disease; Internal Medicine Pulmonary Disease
PROC: 021209W Bypass Coronary Artery, Three Arteries from Aorta with Autologous Venous Tissue, Open Approach (ICD-10-PCS; 2018-06-24)
PROC: 06BP0ZZ Excision of Right Saphenous Vein, Open Approach (ICD-10-PCS; 2018-06-24)
PROC: B24BZZ4 Ultrasonography of Heart with Aorta, Transesophageal (ICD-10-PCS; 2018-06-24)
PROC: 5A1221Z Performance of Cardiac Output, Continuous (ICD-10-PCS; 2018-06-24)
PROC: 02100ZC Bypass Coronary Artery, One Artery from Thoracic Artery, Open Approach (ICD-10-PCS; principal; 2018-06-24 07:30)
PROC: 5A09357 Assistance with Respiratory Ventilation, Less than 24 Consecutive Hours, Continuous Positive Airway Pressure (ICD-10-PCS; 2018-06-25)
DX: I25.119 Atherosclerotic heart disease of native coronary artery with unspecified angina pectoris (principal); J96.01 Acute respiratory failure with hypoxia; I50.21 Acute systolic (congestive) heart failure; J18.9 Pneumonia, unspecified organism; N17.9 Acute kidney failure, unspecified; D62 Acute posthemorrhagic anemia; J90 Pleural effusion, not elsewhere classified; J98.11 Atelectasis; I13.0 Hypertensive heart and chronic kidney disease with heart failure and stage 1 through stage 4 chronic kidney disease, or unspecified chronic kidney disease; J81.1 Chronic pulmonary edema; I12.9 Hypertensive chronic kidney disease with stage 1 through stage 4 chronic kidney disease, or unspecified chronic kidney disease; N18.3 Chronic kidney disease, stage 3 (moderate); I65.23 Occlusion and stenosis of bilateral carotid arteries; E87.5 Hyperkalemia; D69.59 Other secondary thrombocytopenia; K21.9 Gastro-esophageal reflux disease without esophagitis; F17.200 Nicotine dependence, unspecified, uncomplicated; E55.9 Vitamin D deficiency, unspecified; E78.5 Hyperlipidemia, unspecified; Y95 Nosocomial condition; I27.20 Pulmonary hypertension, unspecified; G62.9 Polyneuropathy, unspecified; D50.9 Iron deficiency anemia, unspecified; R53.81 Other malaise

== ENCOUNTER → 2018-08-13 10:08 | Outpatient (CLI) | payer MEDICARE, BC ==
[2018-06-25 16:48] VITALS: BMI 28.6
[~2018-08-13 10:08] MED LIST changes: +CORDARONE200 MG PO; +HEMOCYTE PLUS C1 CAP PO; +HYDROCODON-ACE1 EAC7 PO
[2018-08-13 10:47] LABS: HEMOGLOBIN 10.5 g/dL (13.5-17.5); MCH 30.2 pg (26.0-34.0); MCHC 31.8 g/dL (31.0-37.0); MCV 94.8 fL (80.0-100.0); RBC 3.48 10x6/uL (4.20-6.10); WBC 6.1 10x3/uL (4.8-10.8)
[2018-08-13 10:57] LABS: ANION GAP 12.4 mmol/L (8-16); CALCIUM 8.5 mg/dL (8.5-10.1); CARBON DIOXIDE 26.9 mmol/L (21.0-32.0); CREATININE - SERUM 2.3 mg/dL (0.6-1.3); POTASSIUM - SERUM 4.3 mmol/L (3.5-5.1)
== END | disposition home or self-care (01) ==
LOC: D.RAD 09:30
PROVIDERS: Internal Medicine Cardiovascular Disease
DX: D64.9 Anemia, unspecified (principal); J91.8 Pleural effusion in other conditions classified elsewhere

== ENCOUNTER → 2018-08-27 09:08 | Outpatient (CLI) | payer MEDICARE, BC ==
[2018-06-25 16:48] VITALS: BMI 28.6
== END | disposition home or self-care (01) ==
LOC: D.RAD 09:08
DX: R05 Cough (principal)

== ENCOUNTER → 2018-11-11 14:45 | Outpatient (CLI) | payer MEDICARE, BC ==
[2018-06-25 16:48] VITALS: BMI 28.6
== END | disposition home or self-care (01) ==
LOC: D.CT 14:45
DX: J32.9 Chronic sinusitis, unspecified (principal)

== ENCOUNTER → 2018-11-19 09:38 | Outpatient (CLI) | payer MEDICARE, BC ==
[2018-06-25 16:48] VITALS: BMI 28.6
== END | disposition home or self-care (01) ==
LOC: D.RT 09:38
DX: J44.9 Chronic obstructive pulmonary disease, unspecified (principal)

== ENCOUNTER → 2019-03-08 09:59 | Outpatient (CLI) | payer MEDICARE, BC ==
[2018-06-25 16:48] VITALS: BMI 28.6
[2019-03-08 11:53] LABS: HEMATOCRIT 33.7 % (42.0-54.0); MCH 31.6 pg (26.0-34.0); MCHC 32.6 g/dL (31.0-37.0); MCV 96.8 fL (80.0-100.0); MEAN PLATELET VOLUME 9.5 fL (7.4-10.4); RBC 3.48 10x6/uL (4.20-6.10); RDW 13.6 % (11.5-14.5); WBC 8.2 10x3/uL (4.8-10.8)
[2019-03-08 12:05] LABS: ANION GAP 17.5 mmol/L (8-16); CALCIUM 8.8 mg/dL (8.5-10.1); CREATININE - SERUM 2.2 mg/dL (0.6-1.3); POTASSIUM - SERUM 4.5 mmol/L (3.5-5.1)
== END | disposition home or self-care (01) ==
LOC: D.ECHO 09:59
PROVIDERS: ATTEND Internal Medicine Cardiovascular Disease
DX: R60.0 Localized edema (principal)

== ENCOUNTER 2019-05-26 15:56 | Emergency (ER) | payer MEDICARE, BC ==
[~2019-05-26] VITALS: Ht 180.3 cm; Wt 95.0 kg
[2019-05-26 16:03] VITALS: Ht 180.3 cm; Wt 95.0 kg
[2019-05-26] MEDS ORDERED: SINGULAIR10 MG PO (16:05)
[2019-05-26] MEDS ORDERED: ROPINIROLE HCL2 MG PO (16:05)
[2019-05-26] MEDS ORDERED: NORVASC10 MG PO (16:06)
[2019-05-26 16:22] LABS: BASOPHILS 0.7 % (0-2); EOSINOPHILS 5.2 % (0-7); HEMATOCRIT 34.1 % (42.0-54.0); HEMOGLOBIN 11.3 g/dL (13.5-17.5); IMMATURE GRANULOCYTES 0.2 % (0-5); LYMPHOCYTES 23.8 % (15-50); MCH 31.2 pg (26.0-34.0); MCHC 33.1 g/dL (31.0-37.0); MCV 94.2 fL (80.0-100.0); MEAN PLATELET VOLUME 9.5 fL (7.4-10.4); MONOCYTES 8.8 % (2-11); NEUTROPHILS 61.3 % (40-80); PLATELET COUNT 195 10x3/uL (130-400); RBC 3.62 10x6/uL (4.20-6.10); WBC 5.6 10x3/uL (4.8-10.8)
[2019-05-26 16:30] LABS: PROTIME 12.7 SECONDS (11.6-15.0)
[2019-05-26 16:31] LABS: APTT 27.3 SECONDS (22.8-39.4)
[2019-05-26 16:38] LABS: ALBUMIN 3.7 g/dL (3.4-5.0); ALKALINE PHOSPHATASE 93 U/L (46-116); ALT (SGPT) 15 U/L (10-68); BILIRUBIN - TOTAL 0.29 mg/dL (0.2-1.3); CALC OSMOLALITY 284 mosm/kg (275-300); CALCIUM 8.1 mg/dL (8.5-10.1); CARBON DIOXIDE 22.2 mmol/L (21.0-32.0); CHLORIDE - SERUM 107 mmol/L (98-107); CREATININE - SERUM 2.3 mg/dL (0.6-1.3); GLUCOSE 107 mg/dL (74-106); POTASSIUM - SERUM 4.2 mmol/L (3.5-5.1); SODIUM 141 mmol/L (136-145); UREA NITROGEN 23 mg/dL (7-18); eGFR NON AFRICAN AMERICAN 30 mL/min (90-120)
[2019-05-26 17:05] LABS: CKMB 1.3 U/L (0.0-3.6); CREATINE KINASE 132 UL (21-232); MAGNESIUM - SERUM 1.9 mg/dL (1.8-2.4); THYROID STIMULATING HORMONE 1.04 uIU/mL (0.36-3.74); TROPONIN-I 0.021 ng/mL (0.000-0.060)
[2019-05-26 18:19] VITALS: BP 145/76
== END 2019-05-26 18:11 | disposition short-term general hospital (02) ==
LOC: D.ER 15:56
PROVIDERS: Family Medicine
DX: I63.9 Cerebral infarction, unspecified (principal); Z86.73 Personal history of transient ischemic attack (TIA), and cerebral infarction without residual deficits; K21.9 Gastro-esophageal reflux disease without esophagitis; I48.91 Unspecified atrial fibrillation

== ENCOUNTER → 2020-04-03 10:53 | Outpatient (CLI) | payer MEDICARE, BC ==
[2019-05-26 16:03] VITALS: BMI 29.2
[~2020-04-03 10:53] MED LIST changes: +ROPINIROLE HCL2 MG PO; +SINGULAIR10 MG PO
== END | disposition home or self-care (01) ==
LOC: D.RAD 01-25 10:45 → D.RT 01-25 13:00 → D.RAD 10:45 → D.RT 11:00
PROVIDERS: ATTEND Internal Medicine Pulmonary Disease
DX: J44.9 Chronic obstructive pulmonary disease, unspecified (principal)

== ENCOUNTER → 2020-04-04 12:06 | Outpatient (CLI) | payer MEDICARE, BC ==
[2019-05-26 16:03] VITALS: BMI 29.2
== END | disposition home or self-care (01) ==
LOC: D.LABREF 12:06
PROVIDERS: ATTEND Internal Medicine Pulmonary Disease
DX: Z11.59 Encounter for screening for other viral diseases (principal)

== ENCOUNTER → 2020-04-26 10:28 | Outpatient (CLI) | payer MEDICARE, BC ==
[2019-05-26 16:03] VITALS: BMI 29.2
== END | disposition home or self-care (01) ==
LOC: D.HCCECHO 10:28
PROVIDERS: ATTEND Internal Medicine Cardiovascular Disease
DX: I10 Essential (primary) hypertension (principal); Z11.59 Encounter for screening for other viral diseases

== ENCOUNTER → 2020-04-26 11:09 | Outpatient (CLI) | payer MEDICARE, BC ==
[2019-05-26 16:03] VITALS: BMI 29.2
== END | disposition home or self-care (01) ==
LOC: D.LAB 11:09
PROVIDERS: ATTEND Internal Medicine Pulmonary Disease
DX: Z11.59 Encounter for screening for other viral diseases (principal)

== ENCOUNTER → 2020-04-27 08:06 | Outpatient (CLI) | payer MEDICARE, BC ==
[2019-05-26 16:03] VITALS: BMI 29.2
== END | disposition home or self-care (01) ==
LOC: D.RT 04-03 11:00
PROVIDERS: ATTEND Internal Medicine Pulmonary Disease
DX: J44.9 Chronic obstructive pulmonary disease, unspecified (principal)

== ENCOUNTER 2020-05-24 04:17 | Observation (INO) | payer MEDICARE, BC ==
[~2020-05-24] VITALS: Ht 180.3 cm; Wt 90.9 kg
[2020-05-24] VITALS (12 sets, daily range): BP systolic 109–138; BP diastolic 54–72; Ht 180.3 cm; Wt 90.9 kg
[2020-05-24] MEDS ORDERED: ROPINIROLE HCL1 MG PO (04:31)
[2020-05-24] MEDS ORDERED: XTANDI40 MG PO (04:31)
[2020-05-24] MEDS ORDERED: LIPITOR40 MG PO (04:31)
[2020-05-24] MEDS ORDERED: ZYLOPRIM100 MG PO (04:31)
[2020-05-24] MEDS ORDERED: SINGULAIR10 MG PO (04:32)
[2020-05-24] MEDS ORDERED: TOPROL XL25 MG PO (04:32)
[2020-05-24] MEDS ORDERED: GABAPENTIN100 MG PO (04:32)
[2020-05-24] MEDS ORDERED: ASPIRIN EC81 M1 PO (04:33)
[2020-05-24] MEDS ORDERED: TRELEGY ELLIPT1 EACH INH (04:33)
[2020-05-24] MEDS ORDERED: FUROSEMIDE20 MG PO (04:33)
[2020-05-24] MEDS ORDERED: PREVACID15 MG PO (04:33)
[2020-05-24] MEDS ORDERED: ZOFRAN ODT4 MG/UDTAB PO (04:34)
[2020-05-24] MEDS ORDERED: KLOR-CON 1010 MEQ PO (04:34)
--- NOTE | 2020-05-24 04:52 | NUR ---
SEPTIC PROTOCOL INITIATED. PLEASE SEE PAPER CHART.
[2020-05-24 05:03] LABS: BASOPHILS 0.1 % (0-2); EOSINOPHILS 1.8 % (0-7); HEMATOCRIT 34.6 % (42.0-54.0); HEMOGLOBIN 11.1 g/dL (13.5-17.5); IMMATURE GRANULOCYTES 0.1 % (0-5); LYMPHOCYTES 8.7 % (15-50); MCH 32.4 pg (26.0-34.0); MCHC 32.1 g/dL (31.0-37.0); MCV 100.9 fL (80.0-100.0); MEAN PLATELET VOLUME 9.6 fL (7.4-10.4); NEUTROPHILS 87.3 % (40-80); RBC 3.43 10x6/uL (4.20-6.10); RDW 13.5 % (11.5-14.5); WBC 8.9 10x3/uL (4.8-10.8)
[2020-05-24 05:12] LABS: PLATELET COUNT 270 10x3/uL (130-400)
[2020-05-24 05:13] LABS: CALC OSMOLALITY 284 mosm/kg (275-300); CARBON DIOXIDE 20.8 mmol/L (21.0-32.0); CHLORIDE - SERUM 106 mmol/L (98-107); GLUCOSE 121 mg/dL (74-106); POTASSIUM - SERUM 4.7 mmol/L (3.5-5.1); SODIUM 139 mmol/L (136-145); UREA NITROGEN 29 mg/dL (7-18); eGFR NON AFRICAN AMERICAN 35 mL/min (90-120)
[2020-05-24 05:16] LABS: APTT 26.9 SECONDS (22.8-39.4); INR 0.88 (0.85-1.17); PROTIME 11.9 SECONDS (11.6-15.0)
[2020-05-24 05:27] LABS: ALBUMIN 3.8 g/dL (3.4-5.0); ALKALINE PHOSPHATASE 67 U/L (30-120); ALT (SGPT) 14 U/L (10-68); C-REACTIVE PROTEIN 0.4 mg/dL (0.0-0.9); CKMB 1.6 U/L (0.0-3.6); CREATINE KINASE 188 UL (21-232); PROTEIN - SERUM 7.6 g/dL (6.4-8.2)
[2020-05-24 05:28] LABS: TROPONIN-I < 0.017 ng/mL (0.000-0.060)
[2020-05-24 05:40] LABS: BILIRUBIN NEGATIVE (NEGATIVE); GLUCOSE NEGATIVE (NEGATIVE); KETONE NEGATIVE (NEGATIVE); NITRITE POSITIVE (NEGATIVE); UROBILINOGEN NORMAL (NORMAL)
[2020-05-24 05:42] LABS: BACTERIA MODERATE /hpf (NEGATIVE); EPITHELIAL CELLS 0-5 /hpf (0-5); RED CELLS - URINE 0-5 /hpf (0-5); WHITE CELLS - URINE 0-5 /hpf (NEGATIVE)
--- NOTE | 2020-05-24 06:21 | NUR ---
PT LEFT ED ON STRETCHER FOR ORDERED CT AT THIS TIME.
[2020-05-24 06:35] LABS: ERYTHROCYTE SEDIMENTATION RATE 24 mm/hr (0-20)
--- NOTE | 2020-05-24 06:37 | NUR ---
PT BACK FROM ORDERED CT AT THIS TIME.
--- NOTE | 2020-05-24 09:40 | NUR ---
REPORT OF ADMISSION CALLED TO PT , JAMES @ [phone]. QUESTIONS ANSWERED AND UNDERSTANDING VERBALIZED.
--- NOTE | 2020-05-24 09:45 | NUR ---
PT RECIEVED FROM ER VIA [facility], ABLE TO TRANSFER BEDS X1 ASSIST. AXO. ORIENTED TO ROOM. CALL LIGHT WITHIN REACH. BED IN LOWEST POSITION. COFFEE RECIEVED PER REQUEST. IV NOTED TO LEFT AC INFUSING NS @ 125. IV ALSO NOTED TO LEFT FOREARM. DENIES FURTHER NEEDS OR PAIN AT THIS TIME. WILL CONTINUE TO MONITOR.
[2020-05-24] MEDS ORDERED: VITAMIN D1000 UNIT PO (15:06)
[2020-05-24] MEDS ORDERED: CO Q-10200 MG PO (15:06)
[2020-05-24] MEDS ORDERED: MUCINEX DM ER1 EAC1 PO (15:07)
[2020-05-24] MEDS ORDERED: ATROVENT HFA12.9 GM INH (15:07)
[2020-05-24] MEDS ORDERED: TUMS X-STR300 MG PO ×2 (15:10→15:11)
--- NOTE | 2020-05-24 19:50 | NUR ---
PATIENT IS RESTING COMFORTABLY. HE IS ALERT AND ORIENTED. I FOUND THE PATIENT'S CONDOM CATHETER SUPPIES HIS BROUGHT TO THE ER. WE WILL MONITOR THE PATIENT'S RESPIRATORY STATUS.
[2020-05-25] VITALS: BP 108/37
--- NOTE | 2020-05-25 04:12 | NUR ---
PATIENT IS SLEEPING IN BED. HE HAS EMPTIED HIS LEG BAG. HIS URINE IS BART LOOKING. HE IS IN GOOD SPIRITS. NO COMPLAINTS AT THIS TIME.
[2020-05-25 05:21] LABS: BASOPHILS 0.2 % (0-2); EOSINOPHILS 1.3 % (0-7); IMMATURE GRANULOCYTES 0.5 % (0-5); LYMPHOCYTES 11.6 % (15-50); MCH 33.2 pg (26.0-34.0); MCHC 32.7 g/dL (31.0-37.0); MCV 101.5 fL (80.0-100.0); MEAN PLATELET VOLUME 9.4 fL (7.4-10.4); MONOCYTES 3.5 % (2-11); NEUTROPHILS 82.9 % (40-80); RDW 13.6 % (11.5-14.5)
[2020-05-25 05:30] LABS: HEMATOCRIT 26.6 % (42.0-54.0); HEMOGLOBIN 8.7 g/dL (13.5-17.5); PLATELET COUNT 199 10x3/uL (130-400); RBC 2.62 10x6/uL (4.20-6.10); WBC 12.7 10x3/uL (4.8-10.8)
[2020-05-25 05:42] LABS: ANION GAP 13.6 mmol/L (8-16); BILIRUBIN - TOTAL 0.44 mg/dL (0.2-1.3); CALCIUM 7.9 mg/dL (8.5-10.1); CARBON DIOXIDE 21.4 mmol/L (21.0-32.0); CREATININE - SERUM 2.2 mg/dL (0.6-1.3); PROTEIN - SERUM 5.7 g/dL (6.4-8.2)
[2020-05-25 05:48] LABS: ALBUMIN 2.7 g/dL (3.4-5.0)
[2020-05-25 07:37] VITALS: BP 120/57
--- NOTE | 2020-05-25 09:54 | NUR ---
I have reviewed this patient and I concur with the Shift Assessment completed by the Licensed Practical Nurse today this shift.
[2020-05-25 11:22] VITALS: BP 110/49
--- NOTE | 2020-05-25 14:44 | NUR ---
D/C INSRTUCTIONS REVIEWED WITH PT AND SPOUSE BOTH VERBALIZED UNDERSTANDING. IV D/C WITH CATHTETER TIP INTACT. PT REFUSED WHEELCHAIR OUT. AMBULATED WITH STEADY GAIT TO PERSONAL VEHICLE. CALLED AND SPOKE WITH DR TONY ABOUT PLACING PT ON ANTIBIOTICS AFTER D/C. TELEPHONE ORDER RECIEVED FOR CEFUROXINE 500 MG BID PO X 10 DAYS. CALLED INTO [facility]. PT SPOUSE CONTACTED AND MADE AWARE. VERBALIZED AWARENESS.
== END 2020-05-25 15:02 | disposition home or self-care (01) ==
LOC: D.ER 04:17 → D.M2 07:42 → OBSVTIME 07:42 → D.M2 07:42
PROVIDERS: Family Medicine; ADMIT Family Medicine; ATTEND Family Medicine
DX: N39.0 Urinary tract infection, site not specified (principal); J18.9 Pneumonia, unspecified organism; J98.11 Atelectasis; J44.0 Chronic obstructive pulmonary disease with (acute) lower respiratory infection; K21.9 Gastro-esophageal reflux disease without esophagitis; I12.9 Hypertensive chronic kidney disease with stage 1 through stage 4 chronic kidney disease, or unspecified chronic kidney disease; N18.3 Chronic kidney disease, stage 3 (moderate); Z86.73 Personal history of transient ischemic attack (TIA), and cerebral infarction without residual deficits

== ENCOUNTER → 2021-04-10 08:33 | Outpatient (CLI) | payer MEDICARE, BC ==
[2020-05-24 18:20] VITALS: BMI 27.9
[~2021-04-10 08:33] MED LIST changes: +ATROVENT HFA12.9 GM INH; +CO Q-10200 MG PO; +FUROSEMIDE20 MG PO; +KLOR-CON 1010 MEQ PO; +LIPITOR40 MG PO; +MUCINEX DM ER1 EAC1 PO; +ROPINIROLE HCL1 MG PO; +TOPROL XL25 MG PO; +TRELEGY ELLIPT1 EACH INH; +TUMS X-STR300 MG PO; +VITAMIN D1000 UNIT PO; +XTANDI40 MG PO; +ZOFRAN ODT4 MG/UDTAB PO
== END | disposition home or self-care (01) ==
LOC: D.HCCECHO 08:33
PROVIDERS: ATTEND Internal Medicine Cardiovascular Disease
DX: I25.10 Atherosclerotic heart disease of native coronary artery without angina pectoris (principal); I10 Essential (primary) hypertension

== ENCOUNTER 2021-04-16 08:34 | Day surgery (SDC) | payer MEDICARE, BC ==
[~2021-04-16] VITALS: Ht 180.3 cm; Wt 83.6 kg
--- NOTE | ~2021-04-16 | HEMODYNAMI ---
PATIENT:SUSANNA JOHNSON MEDICAL RECORD: [id number] : 41 LOCATION:[facility] ADMISSION DATE: 04/16/21 Generatedon:110:07 Patient name: SUSANNA JOHNSON Patient #: [id number] SSN: [id number] : 1945 Date of study: 04/16/2021 Page: Of Hemodynamic Procedure Report Patient Data Patient Demographics Procedure consent was obtained First Name: SUSANNA Gender: Male Last Name: ALEX : 1945 Patient #: [id number] Age: 75 year(s) Race: SSN: [id number] Additional ID: [id number] Contact details Address: [facility] [address] State: [place] City: [facility] Zip code: [address] Past Medical History Allergies Allergen Reaction Date Comments Reported Other allergy 06/02/2018 sulfa Sulfa drugs 04/16/2021 Admission Admission Data Admission Date: 04/16/2021 Admission Time: 8:34 Arrival Date: 04/16/2021 Arrival Time: 8:30 Admit Source: Other Insurance Payor: Medicare [facility] #: [id number] Weight (lbs.): 182 Weight (kg.): 82.55 Procedure Procedure Types Cath Procedure Diagnostic Procedure LHC LHC w/Coronaries w/Grafts Sedation Charges Moderate Sedation 25-39 minutes Procedure Description Procedure Date Procedure Date: 04/16/2021 Procedure Start Time: 9:50 Procedure End Time: 10:03 Procedure Staff Name Function Joe Kim MD Performing Physician Nadia Giles RT Monitor Christa Singh RT Scrub Obie Taylor RN Nurse Oni Montes RN Nurse Procedure Data Cath Procedure Fluoroscopy Diagnostic fluoroscopy Total fluoroscopy Time: 3.2 time: 3.2 min min Diagnostic fluoroscopy Total fluoroscopy dose: 312 dose: 312 mGy mGy Contrast Material Contrast Material Type Amount (ml) Isovue 300 46 Entry Location Entry Primary Successful Side Size Upsize Upsize Entry Closure Succes sful Closure Location (Fr) 1 (Fr) 2 (Fr) Remarks Device Remarks Femoral Right 5 Fr Exoseal artery Estimated blood loss: 5 ml Diagnostic catheters Device Type Used For End Catheter Placement MULTIPACK JL 4.0 5Fr Left Coronary catheter Angiography DIAGNOSTIC AR MOD 5Fr Multi-vessel Catheter ([id number]) Angiography DIAGNOSTIC IM 5Fr SVG Angiography catheter ([id number]) Procedure Complications No complications Procedure Medications Medication Administration Route Dosage 0.9% NaCl I.V. 100 ml/hr Oxygen etCO2 Nasal cannula 2 l/min Heparin Flush Bag added to field 2 bags (1000units/500ml NS) Lidocaine 2% added to field 20 Versed I.V. 1 mg Fentanyl I.V. 50 mcg Versed I.V. 0.5 mg Hemodynamics Rest Heart Rate: 96 (bpm) Snapshots Pre Cath Intra NCS Post Cath Vital Signs Time Heart Resp SPO2 etCO2 NIBP (mmHg) Rhythm Pain Sedation Rate (ipm) (%) (mmHg) Status Level (bpm) 9:33:58 69 15 100 1.4 134/74(112) NSR 0 (11) 10(A) , No pain 9:38:08 69 18 99 23.8 131/75(107) NSR 0 (11) 9(A) , No pain 9:42:22 71 10 92 1.4 123/70(106) NSR 0 (11) 9(A) , No pain 9:46:34 69 12 98 29.1 123/66(102) NSR 0 (11) 9(A) , No pain 9:50:46 69 12 99 29.8 116/67(100) NSR 0 (11) 9(A) , No pain 9:54:56 67 12 99 28.3 119/62(105) NSR 0 (11) 9(A) , No pain 9:59:12 21 15 98 26.8 115/55(96) NSR 0 (11) 10(A) , No pain 10:03:22 69 13 95 12.6 114/60(88) NSR 0 (11) 10(A) , No pain Medications Time Medication Route Dose Verified Delivered Reason Notes Effe ctiveness by by 9:33:08 0.9% NaCl I.V. 100 Joe Oni used for ml/hr Kim MD Simon deputy sheriff generalist/bailiff 9:33:16 Oxygen etCO2 2 Joe Oni used for Nasal l/min Julio Montes RN procedure cannula 9:33:28 Heparin Flush added 2 Joe Joe used for Bag to bags Julio Kim MD procedure (1000units/500ml field NS) 9:33:39 Lidocaine 2% added 20ml Joe Joe for local to vial Julio Kim MD anesthetic field 9:34:42 Versed I.V. 1 mg Joe Oni for Julio Montes RN sedation 9:34:50 Fentanyl I.V. 50 Joe Oni for mcg Julio Montes RN sedation 9:46:45 Versed I.V. 0.5 Joe Oni for mg Julio Montes RN sedation Procedure Log Time Note 9:12:47 Informed consent obtained and on chart 9:12:52 Diagnostic Cath Status : Elective 9:14:45 Arrival Date: 04/16/2021 8:30:00 AM 9:15:12 Insurance Payor : Medicare 9:15:13 Admit Source: Other 9:21:03 Oni Montes RN sent for patient. Start room use. 9:28:48 Patient Weight : 182 lbs 9:29:32 Procedure Status Elective Heart Cath (OP). 9:29:33 Time tracking: Regular hours (M-F 7:00 - 5:00) 9:29:38 Plan of Care:Hemodynamics will remain stable., Cardiac rhythm will remain stable., Comfort level will be maintained., Respiratory function will remain adequate., Patient/ family verbilizes understanding of procedure., Procedure tolerated without complication., Recovers from procedure without complications.. 9:29:45 H&P Date Dictated: 04/03/2021 Within 30 days and on chart., H&P Addendum completed by physician on day of procedure. (MUST COMPLETE FOR ALL OUTPATIENTS). 9:29:54 Patient allergic to Sulfa drugs 9:30:19 Patient received from Pre/Post Procedure Room to CCL 1 Alert and oriented. Tansferred to table in Supine position. 9:30:20 Warm blankets applied, and jeanna hugger turned on for patient comfort. 9:30:20 Correct patient and procedure confirmed by team. 9:30:21 ECG and BP/O2 sat monitors applied to patient. 9:30:23 Full Disclosure recording started 9:30:23 Pre-procedure instructions explained to patient. 9:30:24 Pre-op teaching completed and patient verbalized understanding. 9:30:25 Family in patients room. 9:30:27 Patient NPO since Midnight. 9:30:28 Is the patient allergic to Iodine/contrast media? No. 9:30:31 Is patient on blood thinner?No 9:31:44 Previous problem with sedation/anesthesia? No ? 9:31:45 Snore? Yes 9:31:47 Sleep apnea? Yes 9:31:48 Deviated septum? No 9:31:48 Opens mouth fully? Yes 9:31:49 Sticks out tongue? Yes 9:31:53 Airway obstruction? Yes COPD 9:32:00 Dentures? No ? 9:32:05 Pre procedure: right dorsailis pedis pulse 1+ Palpable, but thready & weak; easily obliterated 9:32:14 IV patent on arrival in left forearm with 0.9% NaCl at [facility]. 9:32:51 Vital chart was started 9:33:08 0.9% NaCl 100 ml/hr I.V. was administered by Oni Montes RN; used for procedure; Verbal order read back and verified. 9:33:16 Oxygen 2 l/min etCO2 Nasal cannula was administered by Oni Montes RN; used for procedure; Verbal order read back and verified. 9:33:28 Heparin Flush Bag (1000units/500ml NS) 2 bags added to field was administered by Joe Kim MD; used for procedure; Verbal order read back and verified. 9:33:39 Lidocaine 2% 20ml vial added to field was administered by Joe Kim MD; for local anesthetic; Verbal order read back and verified. 9:33:44 Baseline sample Acquired. 9:34:02 Patient diabetic? No. 9:34:10 Lab results completed and on chart. 9:34:16 Right groin area was prepped with chlora-prep and draped in sterile fashion 9:34:16 Alarms reviewed by R. N. 9:34:17 Sharps counted by scrub and verified by R.N. 9:34:18 Physician arrived 9:34:18 --------ALL STOP TIME OUT------ 9:34:19 Final Timeout: patient, procedure, and site verified with staff and physician. All members of the team are in agreement. 9:34:21 Right groin site verified by team. 9:34:25 Fire Safety Assessment: A--An alcohol-based skin anteseptic being used preoperatively., C--Open oxygen or nitrous oxide is being used., D--An ESU, laser, or fiber-optic light is being used. 9:34:28 Physical assessment completed. ASA score P 2 - A patient with mild systemic disease as per Joe Kim MD. 9:34:33 Sedation plan: IV Moderate Sedation Medication:Versed, Fentanyl 9:34:42 Versed 1 mg I.V. was administered by Oni Montes RN; for sedation; Verbal order read back and verified. 9:34:50 Fentanyl 50 mcg I.V. was administered by Oni Montes RN; for sedation; Verbal order read back and verified. 9:36:11 Use device set Femoral Dx 9:36:12 ACIST Syringe (97447) opened to sterile field. 9:36:12 Bag Decanter (2002S) opened to sterile field. 9:36:13 Medline Cath Pack ([id number]) opened to sterile field. 9:36:14 ACIST Hand Control (68329) opened to sterile field. 9:36:14 ACIST Manifold (72083) opened to sterile field. 9:36:15 DIAGNOSTIC Multipack 5Fr catheter set ([id number]) opened to sterile field. 9:36:15 Tegaderm 4 x 4 (1626W) opened to sterile field. 9:36:16 SHEATH 5FR Dameron (DST490) opened to sterile field. 9:36:17 EMERALD Guide Wire (946-481) opened to sterile field. 9:44:48 Zero performed for pressure channel P1 9:46:45 Versed 0.5 mg I.V. was administered by Oni Montes RN; for sedation; Verbal order read back and verified. 9:50:24 Procedure started. 9:50:27 Local anesthetic to right femoral artery with Lidocaine 2% by Joe Kim MD.INITIAL ACCESS ONLY 9:50:36 A 5 Fr sheath was inserted into the Right Femoral artery 9:51:44 A MULTIPACK JL 4.0 5Fr catheter was advanced over the wire and used for Left Coronary Angiography. 9:53:42 LCA angiography performed. 9:53:45 Injector settings: Ml/sec: 3, Volume: 6, 9:53:48 Catheter removed. 9:53:58 A DIAGNOSTIC AR MOD 5Fr Catheter ([id number]) was advanced over the wire and used for Multi-vessel Angiography. 9:54:36 RCA angiography performed. 9:54:41 Injector settings: Ml/sec: 3, Volume: 6, 9:55:24 SVG to RCA angiography performed. 9:55:57 SVG to Circ angiography performed. 9:58:00 Catheter removed. 9:58:15 A DIAGNOSTIC IM 5Fr catheter ([id number]) was advanced over the wire and used for SVG Angiography. 9:58:54 MOHAMUD to LAD angiography performed. 9:59:11 Injector settings: Ml/sec: 3, Volume: 6, 9:59:24 Catheter removed. 9:59:56 EXOSEAL 5Fr (EX500) opened to sterile field. 10:00:08 Sheath removed intact; hemostasis achieved with Exoseal to the Right Femoral artery. 10:00:10 Procedure ended.(Physican Out) 10:00:49 Fluoroscopy time 03.20 minutes. 10:00:53 Fluoroscopy dose: 312 mGy 10:00:53 Flurop Dose total: 312 10:00:58 Dose Area Product 37225 mGy/cm. 10:01:06 Contrast amount:Isovue 300 46ml. 10:01:26 Maximum allowable dose exceeded? No. 10:01:27 Sharps counted by scrub and verified by R.N. 10:01:28 Insertion/operative site no bleeding no hematoma. 10:01:31 Post-op/insertion site Right Femoral artery dressed using a 4 x 4 and Tegaderm. 10:01:32 Post Procedure Pulses reassessed and unchanged 10:01:36 Post procedure rhythm: unchanged. 10:01:39 Estimated blood loss: 5 ml 10:01:41 Post procedure instruction explained to patient.Patient verbalizes understanding. 10:01:41 Patient needs reinforcement of post procedure teaching. 10:02:29 Procedure type changed to Cath procedure, Diagnostic procedure, LHC, LHC w/Coronaries w/Grafts, Sedation Charges, Moderate Sedation 25-39 minutes 10:02:31 Procedure and supply charges have been captured, reviewed, submitted and are correct. 10:02:35 Procedure Complication : No complications 10:02:37 Vital chart was stopped 10:03:00 [facility] Findings: MVD- MD will discuss options w/ pt 10:03:04 Operative report dictated upon procedure completion. 10:03:05 See physician's report for complete and final results. 10:03:09 Report given to Pre/Post Procedure Room. 10:03:12 Patient transfered to Pre/Post Procedure Room with Stretcher. 10:03:14 Procedure ended. 10:03:14 Full Disclosure recording stopped 10:03:17 End room use (Document Last) 10:05:47 End room use (Document Last) 10:06:15 End room use (Document Last) Device Usage Item Name Manufacture Quantity Catalog Hospital Part Current Minimal L ot# / Number Charge Number Stock Stock Serial# Code ACIST Acist 1 [id number] [id number] [id number] [id number] 20 Syringe Medical (41366) Systems Inc Bag Microtek 1 2001S 192216 92158 576789 5 Decanter Medical Inc. () Medline Medline 1 [id number] [id number] 94062 821799 5 Cath Pack ([id number]) ACIST Hand Acist 1 88226 703002 029351 609609 5 Control Medical (00658) Systems Inc ACIST Acist 1 15071 286750 308082 051259 5 Manifold Medical (43551) Systems Inc DIAGNOSTIC Cardinal 1 [id number] 529965 85058 570968 30 Multipack Health 5Fr catheter set ([id number]) Tegaderm 4 3M 1 1626W 785587 839062 796966 5 x 4 (1626W) SHEATH 5FR Terumo 1 PES146 858759 538246 185342 5 Dameron (YAF590) EMERALD Cardinal 1 502455 127413 446519 065493 5 Guide Wire Health (502-371) MULTIPACK Cardinal 1 743412 5 JL 4.0 5Fr Health catheter DIAGNOSTIC Cardinal 1 [id number] 473465 523514 921265 15 AR MOD 5Fr Health Catheter ([id number]) DIAGNOSTIC Cardinal 1 [id number] 056346 713859 197393 5 IM 5Fr Health catheter (120577I) EXOSEAL 5Fr Cardinal 1 EX500 103082 278040 288483 10 (EX500) Health Signature Audit [place] Stage Time Signature Unsigned Intra-Procedure 04/16/2021 Nadia Giles 10:05:47 AM RT(R) Intra-Procedure 04/16/2021 Oni Montes RN 10:06:16 AM Intra-Procedure 04/16/2021 Joe Kim MD 10:07:43 AM [id number] [place] [address]
[2021-04-16 09:14] VITALS: BP 123/63; Ht 180.3 cm; Wt 83.6 kg
--- NOTE | 2021-04-16 10:11 | NUR ---
PT ARRIVED BY STRETCHER. PLACED ON MONITORS. ASSESSMENT COMPLETED. VSS AT THIS TIME. CALL LIGHT WITHIN REACH. FAMILY AT BEDSIDE.
[2021-04-16 10:12] LABS: BASOPHILS 0.7 % (0-2); EOSINOPHILS 2.6 % (0-7); HEMATOCRIT 31.9 % (42.0-54.0); HEMOGLOBIN 10.6 g/dL (13.5-17.5); LYMPHOCYTES 13.5 % (15-50); MCH 32.8 pg (26.0-34.0); MCHC 33.1 g/dL (31.0-37.0); MCV 99.1 fL (80.0-100.0); MONOCYTES 4.6 % (2-11); NEUTROPHILS 78.6 % (40-80); RBC 3.22 10x6/uL (4.20-6.10); RDW 14.3 % (11.5-14.5); WBC 6.1 10x3/uL (4.8-10.8)
[2021-04-16 10:23] LABS: ANION GAP 16.9 mmol/L (8-16); CALCIUM 8.1 mg/dL (8.5-10.1); CARBON DIOXIDE 19.6 mmol/L (21.0-32.0); CREATININE - SERUM 1.6 mg/dL (0.6-1.3); LDL-HDL RATIO 1.6 ratio (1.5-3.5); POTASSIUM - SERUM 4.5 mmol/L (3.5-5.1)
--- NOTE | 2021-04-16 10:26 | NUR ---
RIGHT GROIN DRESSING C/D/I. NO S/S OF HEMATOMA NOTED. CALL LIGHT WITHIN REACH. VSS AT THIS TIME. RIGHT PEDAL PULSE PALPABLE.
[2021-04-16 10:36] LABS: PLATELET COUNT 322 10x3/uL (130-400)
--- NOTE | 2021-04-16 10:56 | NUR ---
PT RESTING COMFORTABLY. VSS AT THIS TIME. CALL LIGHT WITHIN REACH. FAMILY AT BEDSIDE. RIGHT GROIN DRESSING C/D/I. NO S/S OF HEMATOMA NOTED. RIGHT PEDAL PULSE PALPALBLE. PT TOLTERATING SIPS OF WATER. DENIES NAUSEA.
--- NOTE | 2021-04-16 11:30 | NUR ---
RIGHT GROIN DRESSING C/D/I. NO S/S OF HEMATOMA NOTED. CALL LIGHT WITHIN REACH. VSS AT THIS TIME. HEAD OF BED INC TO 30 DEGREES. TOLERATED WELL. RIGHT PEDAL PULSE PALPABLE. SET UP WITH SANDWICH TRAY AND DRINK. DENIES NAUSEA.
--- NOTE | 2021-04-16 12:00 | NUR ---
RIGHT GROIN DRESSING C/D/I. NO S/S OF HEMATOMA NOTED. RIGHT PEDAL PULSE PALPABLE. VSS AT THIS TIME.
--- NOTE | 2021-04-16 12:15 | NUR ---
PIV D/C'D WITH CATH TIP INTACT. TOLERATED WELL. VSS. RIGHT GROIN DRESSING C/D/I. NO S/S OF HEMATOMA NOTED. PT INSTRUCTED TO GET UP AND DRESSED AT THIS TIME. FAMILY AT BEDSIDE TO ASSIST. CALL LIGHT LEFT WITHIN REACH.
--- NOTE | 2021-04-16 12:30 | NUR ---
DISCUSSED DISCHARGE INSTRUCTIONS WITH PT AND PT'S FAMILY. THEY VOICED UNDERSTANDING. PT TAKEN OUT TO VEHICLE BY WHEELCHAIR. NO S/S OF DISTRESS NOTED. ALL BELONGINGS AND PAPERWORK IN HAND.
== END 2021-04-16 12:30 | disposition home or self-care (01) ==
LOC: D.CATH 08:34
PROVIDERS: ATTEND Internal Medicine Cardiovascular Disease
DX: I25.118 Atherosclerotic heart disease of native coronary artery with other forms of angina pectoris (principal); R94.39 Abnormal result of other cardiovascular function study; I10 Essential (primary) hypertension; R06.00 Dyspnea, unspecified; I34.0 Nonrheumatic mitral (valve) insufficiency; E78.5 Hyperlipidemia, unspecified

== ENCOUNTER 2021-04-21 13:08 | Emergency (ER) | payer MEDICARE, BC ==
[~2021-04-21] VITALS: Ht 180.3 cm; Wt 84.1 kg
[2021-04-21 13:13] VITALS: Ht 180.3 cm; Wt 84.1 kg
[2021-04-21 13:52] LABS: BASOPHILS 0.4 % (0-2); EOSINOPHILS 0.3 % (0-7); HEMATOCRIT 32.4 % (42.0-54.0); HEMOGLOBIN 10.7 g/dL (13.5-17.5); LYMPHOCYTES 8.4 % (15-50); MCH 32.4 pg (26.0-34.0); MCV 98.3 fL (80.0-100.0); MEAN PLATELET VOLUME 7.4 fL (7.4-10.4); MONOCYTES 4.6 % (2-11); NEUTROPHILS 86.3 % (40-80); PLATELET COUNT 277 10x3/uL (130-400); RDW 14.5 % (11.5-14.5); WBC 13.5 10x3/uL (4.8-10.8)
[2021-04-21 14:01] LABS: APTT 32.5 SECONDS (22.8-39.4); INR 1.07 (0.85-1.17); PROTIME 12.8 SECONDS (11.6-15.0)
[2021-04-21 14:02] LABS: CALC OSMOLALITY 280 mosm/kg (275-300); CALCIUM 8.4 mg/dL (8.5-10.1); CARBON DIOXIDE 20.8 mmol/L (21.0-32.0); CHLORIDE - SERUM 104 mmol/L (98-107); CREATININE - SERUM 2.1 mg/dL (0.6-1.3); GLUCOSE 119 mg/dL (74-106); POTASSIUM - SERUM 4.4 mmol/L (3.5-5.1); SODIUM 138 mmol/L (136-145); UREA NITROGEN 25 mg/dL (7-18); eGFR NON AFRICAN AMERICAN 33 mL/min (90-120)
[2021-04-21 14:20] LABS: ALBUMIN 3.2 g/dL (3.4-5.0); ALKALINE PHOSPHATASE 70 U/L (30-120); ALT (SGPT) 20 U/L (10-68); BILIRUBIN - TOTAL 0.41 mg/dL (0.2-1.3); CREATINE KINASE 80 UL (21-232); PROTEIN - SERUM 7.2 g/dL (6.4-8.2); TROPONIN-I < 0.017 ng/mL (0.000-0.060)
[2021-04-21 16:49] LABS: BACTERIA MOD HPF (<MOD); BILIRUBIN NEGATIVE (NEGATIVE); KETONE NEGATIVE mg/dL (< 1+); NITRITE POSITIVE (NEGATIVE); PH 8.5 (5.0-8.0); SQUAMOUS EPITHELIAL 1 HPF (0-4); UROBILINOGEN NORMAL mg/dL (< 2); WHITE CELLS - URINE 2 HPF (0-1)
[2021-04-21] MEDS ORDERED: MACROBID100 MG PO (17:09)
[2021-04-21 17:19] VITALS: BP 116/78
== END 2021-04-21 17:21 | disposition home or self-care (01) ==
LOC: D.ER 13:08
PROVIDERS: Family Medicine
DX: N39.0 Urinary tract infection, site not specified (principal); Z86.73 Personal history of transient ischemic attack (TIA), and cerebral infarction without residual deficits; G62.9 Polyneuropathy, unspecified; I10 Essential (primary) hypertension; E78.5 Hyperlipidemia, unspecified; J44.9 Chronic obstructive pulmonary disease, unspecified; Z99.81 Dependence on supplemental oxygen; K21.9 Gastro-esophageal reflux disease without esophagitis

== ENCOUNTER → 2021-04-27 08:50 | Outpatient (CLI) | payer MEDICARE, BC ==
[2021-04-21 13:13] VITALS: BMI 25.8
[~2021-04-27 08:50] MED LIST changes: +MACROBID100 MG PO
== END | disposition home or self-care (01) ==
LOC: D.US 08:50
PROVIDERS: ATTEND Internal Medicine Cardiovascular Disease
DX: I10 Essential (primary) hypertension (principal); I65.21 Occlusion and stenosis of right carotid artery